=== PATIENT | female | born 1955 | race Caucasian/White ===

== ENCOUNTER 2023-08-05 13:50 | Inpatient (IN) | payer MEDICARE, MEDICAID, SELFPAY ==
[2023-08-05] VITALS (31 sets, daily range): BP systolic 106–200; BP diastolic 71–153; BMI 32.9; BMI 32.7
--- NOTE | 2023-08-05 09:02 | ED.GENMED ---
History of Present Illness
General
Chief Complaint: Heart Rate Problem
Source: patient
Time Seen by Provider: 08/05/23 08:42
Travel History
Have you had any contact with someone who has COVID-19?: No
Do you have any symptoms of coronavirus? Fever > 100 degrees, chills, cough, shortness of breath, sore throat, loss of taste or smell, muscle aches, or headache?: No
History of Present Illness
History of Present Illness:
67-year-old female presents to the emergency room complaining of shortness of breath, palpitations. Patient called 911 due to her shortness of breath. They noted her to have a significant tachycardia. Patient states that she been feeling short of
breath last night. She felt she was wheezing and used a breathing treatment. She does not have a history of A-fib or other cardiac rhythm abnormality. She does take atenolol for hypertension. She has not taken it for the past couple days.
Past History
Past History
ED Past Medical History: GERD, HTN, NIDDM, Seizures and Psychiatric (Bipolar disorder)
Social History
Tobacco: Former smoker
Alcohol: Former
Living: with family
Phy Exam
Physical Exam
Physical Exam:
General: Awake, Alert, Oriented X3. Patient seems jittery and anxious
Vitals: Tachycardic
Head: Atraumatic
Eyes: Pupils equal, EOMI
Throat: Airway intact, no exudates, dry mucosa
Neck: Trachea midline
Lungs: Clear and equal b/l
Heart: Tachycardic regular rate, no murmurs
Abd: Soft, Nontender, No pulsatile mass
Neuro: Nonfocal
Skin: Warm, dry, no rash
Extremities: pulses equal b/l, 1+ edema
Scores
[id number] Score for Afib Stroke Risk
Age in Years (65=0, 65-74=1, >/=75=2): <65
Sex (Female=+1): Female
Congestive Heart Failure History (Yes=+1): Yes
Hypertension History (Yes=+1): Yes
Stroke/TIA/Thromboembolism History (Yes=+2): No
Vascular Disease History (Yes=+1): No
Diabetes Mellitus (Yes=+1): No
Score: 3
Anticoagulation Recommendations: Recommend anticoagulation (as validated in nonvalvular fib)
Course
Orders/Labs/Results
Orders:
Orders
08/05/23 09:01
Electrocardiogram (*1) Stat
Reason for Study: Other
Other Reason for Exam: chest pain
Cardiac Monitoring- Treatment ONCE
EKG- Treatment ONCE
08/05/23 09:14
Basic Metabolic Panel Urgent
Complete Blood Count/With Diff Urgent
NT-proBNP Urgent
Troponin I Urgent
08/05/23 09:42
Diltiazem 125 mg/125 ml Nss [Cardizem] 125 mg in 125 ml IV NOW
Initial dose in mg/hr, then titrate:: 5
Titrate to keep:: Heart rate 80-100 bpm
Titrate by mg/hr:: 5 mg/hr
Frequency of titrations (minutes):: 15
Maximum dose in mg/hr:: 15
Diltiazem HCl [Cardizem] 15 mg IV NOW STA
08/05/23 10:15
CR Chest Portable - 1 View Urgent
Comment:
Reason For Exam: shorness of breath
Reason Study Needs to be Portable: Patient Unstable
08/05/23 10:21
Diltiazem HCl [Cardizem] 20 mg IV NOW STA
08/05/23 10:22
Acetaminophen [Tylenol] 1,000 mg PO NOW STA
08/05/23 10:45
Furosemide [Lasix] 40 mg IV NOW STA
08/05/23 10:51
Apixaban [Eliquis] 5 mg PO NOW STA
08/05/23 12:45
Lorazepam [Ativan] 1 mg IV NOW STA
08/05/23 12:46
EKG [Electrocardiogram (*1)] Urgent
Reason for Study: Chest Pain
EKG- Treatment ONCE
08/05/23 12:50
Nitroglycerin Sublingual [Nitrostat (Sublingual)] 0.4 mg SL NOW STA
Abnormal Lab Results
08/05/23
09:14
RBC 3.81 L 10^6/uL
(4.20-5.40)
MCH 32.8 H pg
(27.0-31.0)
RDW 14.6 H %
(11.5-14.5)
Absolute Lymphs (auto) 0.6 L 10^3/uL
(1.2-3.4)
Neutrophils % 82.8 H %
(42.2-75.2)
Lymphocytes % 8.5 L %
(20.5-51.1)
Chloride 108 H mmol/L
(98-107)
Creatinine 0.4 L mg/dL
(0.6-1.0)
Glucose 153 H mg/dl
(70-99)
08/05/23 09:14
08/05/23 09:14
Vital Signs
Initial and Last Documented VS:
Initial Vital Signs
Temp Pulse Resp BP Pulse Ox
97.8 F 147 22 141/96 95
08/05/23 08:48 08/05/23 08:48 08/05/23 08:48 08/05/23 08:48 08/05/23 08:48
Last Documented Vital Signs
Temp Pulse Resp BP Pulse Ox
97.8 F 133 24 164/116 94
08/05/23 08:48 08/05/23 12:30 08/05/23 12:30 08/05/23 12:30 08/05/23 12:30
MDM/Problems Addressed
Differential Diagnosis Includes:
SVT, atrial fibrillation, anemia, heart failure
MDM/Problems Addressed:
Patient presents with a rapid heart rate. Her EKG confirms that she is in atrial fibrillation with rapid ventricular response. She stated she felt she was wheezing but I hear no wheezing on exam. Rather it appears that she has developed heart
failure. She has crackles in the bases and her chest x-ray is consistent with pulmonary edema. Rate controlled with IV Cardizem. She received 2 boluses of the drip is at 15 if she continues to be fairly tachycardic. Eliquis given to start
anticoagulation given a [id number] score of 3. Patient will require hospitalization to adequately control blood pressure and for consideration of cardioversion.
Chronic conditions affecting care: HTN and COPD
*Radiology
Radiology exam reviewed: preliminary read by ED provider (Personally viewed the patient's chest x-ray and see mild pulmonary edema)
*Pulse Oximetry
Patient hypoxic: no
*EKG
Interpreted by ED Provider?: Yes
Interpretation: abnormal
Heart Rate: 144
Rate: tachycardiac
Rhythm: a-fib
[place]: normal axis
Interval: normal interval
QRS Pattern: normal QRS
Ischemia: non-specific ST changes
*Preservative Filler Machine Operator Interpretation
Rate: tachycardiac
Interpretation: abnormal
Rhythm: a-fib
*Critical Care Note
Total Time (30-74mins, 75-104mins- exclusive of procedures): 35 min
comment:
Critical care statement: A total of 35 minutes of critical care time was provided for this patient. This includes management of unstable vital signs, evaluation of the patient at bedside, reviewing the patient's pertinent medical records, discussion
with consultants, review of old EKGs and review of pertinent medical records. This time with separate from time utilized to perform the aforementioned documented procedures
ED Attending Note
-
Portions of this chart may have been created with voice recognition software.� Occasional wrong word or��sound alike� substitutions may have occurred due to the inherent limitations of voice recognition software.
Discharge Plan
Departure
Patient Disposition: Admit
Date of Disposition: 08/05/23
Time of Disposition: 10:46
Admit to: Telemetry
Presentation/result/management discussed w/ accepting MD/DO: Hospitalist
Condition: Fair
Discharge Problem:
Atrial fibrillation with rapid ventricular response, CHF (congestive heart failure)
Prescriptions:
No Action
atenolol 100 mg Tablet
100 mg PO DAILY Qty: 0
Patient Comments:
unknown dose
citalopram 40 mg Tablet
40 mg PO HS Qty: 0
omeprazole 40 MG capsule,delayed release(DR/EC)
40 mg PO DAILY
aspirin 81 MG tablet,delayed release (DR/EC)
81 mg PO DAILY
B-complex with vitamin C [Vitamin B Complex-C] Tablet
1 tab PO DAILY Qty: 0
Women's 50 Plus Daily Formula 1 EACH tablet
1 ea PO DAILY
magnesium oxide 400 mg magnesium Tablet
400 mg PO BID Qty: 0
Patient Comments:
Pt states she takes 2 400 mg pills (noted 09/14/14).
Glucosamine Chondroitin 550-30-1 mg Capsule
1 cap PO DAILY Qty: 0
albuterol sulfate 1 PUFF HFA aerosol inhaler
2 puff inhalation R Q4HPRN PRN (Reason: shortness of breath) Qty: 1 0RF
ibuprofen 800 mg tablet
800 mg PO TID PRN (Reason: mild pain)
ondansetron HCl 4 mg tablet
4 mg PO DAILY PRN (Reason: nausea/vomiting)
lorazepam 1 mg tablet
1 mg PO HS PRN (Reason: sleep/anxiety)
Patient Comments:
08/05/2023: last filled 04/27/23, 30 tabs [facility] [address] [id number]
budesonide-formoterol [Symbicort] 160-4.5 mcg/actuation Hfa Aerosol Inhaler
2 puff INHALATION R BID
Referrals:
Christopher Max MD [Family Provider] -
Interventions
Interventions:
*Risk Screen - Suicide Last Done: 08/05/23 08:48
*General Assessment Last Done: 08/05/23 08:48
*Neglect/Abuse Screening Last Done: 08/05/23 08:48
ED- Fall Risk Assessment Last Done: 08/05/23 09:01
*ED COVID-19 Vaccine History Last Done: 08/05/23 08:48
ED- Cardiac Assessment Last Done: 08/05/23 09:01
ED- Pulmonary Assessment Last Done: 08/05/23 09:01
Discharge Date and Time
Print Language: HEBREW
[2023-08-05 09:27] LABS: % Basophils 0.8 % (0-2); % Eosinophils 0.3 % (0-6); % Immature Granulocytes 0.4 % (0-0.5); % Lymphocytes 8.5 % (20.5-51.1); % Monocytes 7.2 % (1.7-9.3); % Neutrophils 82.8 % (42.2-75.2); Absolute Basophils 0.1 10^3/uL (0-0.2); Absolute Lymphocytes 0.6 10^3/uL (1.2-3.4); Absolute Monocytes 0.5 10^3/uL (0.1-0.6); Absolute Neutrophils 6.3 10^3/uL (1.4-6.5); Hematocrit 37.7 % (37.0-47.0); Hemoglobin 12.5 g/dL (12.0-16.0); Mean Corp Hgb Conc. 33.2 g/dL (33.0-37.0); Mean Corpuscular Hgb 32.8 pg (27.0-31.0); Mean Platelet Volume 10.2 fL (7.4-10.4); Nucleated Red Blood Cells % 0 %; Platelet Count 251 10^3/uL (130-400); Red Blood Cell Count 3.81 10^6/uL (4.20-5.40); Red Cell Dist. Width 14.6 % (11.5-14.5); White Blood Cell Count 7.6 10^3/uL (4.8-10.8)
[2023-08-05 09:41] LABS: Blood Urea Nitrogen 12 mg/dl (7-17); Calcium 9.1 mg/dl (8.4-10.2); Carbon Dioxide 23 mmol/L (22-30); Chloride 108 mmol/L (98-107); Estimated Creatinine Clearance 104 ml/min; Glucose 153 mg/dl (70-99); Potassium 4.1 mmol/L (3.5-5.1); Sodium 142 mmol/L (135-145); eGFR > 60.00
[2023-08-05 09:52] LABS: NT-proBNP 1740 pg/ml; Troponin I 0.013 ng/ml
[2023-08-05] MEDS: CARDIZEM 15 MG IV (09:58)
[2023-08-05] MEDS: CARDIZEM 125 IV ×2 (10:01→17:42)
[2023-08-05] MEDS: CARDIZEM 20 MG IV (10:43)
[2023-08-05] MEDS: TYLENOL 1000 MG PO (10:43)
[2023-08-05] MEDS: LASIX 40 MG IV (11:00)
[2023-08-05] MEDS: ELIQUIS 5 MG PO (11:01)
[2023-08-05] MEDS: ATIVAN 1 MG IV (12:49)
--- NOTE | 2023-08-05 13:18 | HPS.HSE ---
Family Physician
-
Family Physician: Christopher Max
Chief Complaint
-
SOB and palpitations
History of Present Illness
patient with a longstanding history of alcoholism and daily alcohol use, went cold turkey on Thursday. She drinks like 3 glasses of wine every day. A year ago she went through alcohol rehab. She is back to drinking.
When she stopped drinking she started become nauseous and she threw up. She was feeling shaky. She continued to stay away from alcohol.
Last night she started to become short of breath and started to have palpitations and so came to the hospital. No chest pains.
In the ER she was noted to be in rapid atrial fibrillation which is new to her and also evidence of heart failure which is new to her. Denies prior history of cardiac disease. History of hypertension but did not take her medication yesterday or
today.
Still feels tremulous.
No nausea today.
Denies history of diabetes mellitus type 2.
Medical History
Past Medical History
Past Medical History: Reports HTN, Seizures ( from alcohol withdrawal) and Psychiatric ( bipolar disorder)
Past Surgical History: Reports Other ( Breast implant in the 30s, tubal ligation)
Social History
Tobacco: Former Smoker
Alcohol: Daily
Living: Alone
Family History
Family History: Not pertinent
Allergies / Home Medications
Allergies reflects when Allergies were last updated in [employer].
Home Medications with original date entered in [employer]
Allergy/Medication List:
Allergies
Allergy/AdvReac Type Severity Reaction Status Date / Time
codeine Allergy causes Verified 08/05/23 09:01
nausea
oxycodone [From Percocet] Allergy Nausea / Verified 08/05/23 09:01
Vomiting
Home Medications
atenolol 100 mg tablet 100 mg PO DAILY ##0 10/17/12
B-complex with vitamin C 1 tab PO DAILY ##0 09/14/14
albuterol sulfate 90 mcg/actuation aerosol inhaler 2 puff inhalation R Q4HPRN PRN shortness of breath #1 puff 09/14/14
aspirin 81 mg tablet,delayed release 81 mg PO DAILY 09/14/14
citalopram 40 mg tablet 40 mg PO HS ##0 09/14/14
glucosamine sulf dipot chlr,msm,chond 550 mg-C 30 mg-adriana 1 mg capsule (Glucosamine Chondroitin) 1 cap PO DAILY ##0 09/14/14
magnesium oxide 400 mg PO BID ##0 09/14/14
menbowuo-pvj-ogsoq ac 400 mcg-calcium carb 500 mg-vit K1 20 mcg tablet (Women's 50 Plus Daily Formula) 1 ea PO DAILY 09/14/14
omeprazole 40 mg capsule,delayed release 40 mg PO DAILY 09/14/14
budesonide-formoterol HFA 160 mcg-4.5 mcg/actuation aerosol inhaler (Symbicort) 2 puff inhalation R BID 08/05/23
ibuprofen 800 mg tablet 800 mg PO TID PRN mild pain 08/05/23
lorazepam 1 mg tablet 1 mg PO HS PRN sleep/anxiety 08/05/23
ondansetron HCl 4 mg tablet 4 mg PO DAILY PRN nausea/vomiting 08/05/23
Review of Systems
-
A 12 point ROS was completed and negative except as noted: Yes
Physical Exam
Vital Signs
Vital Signs
Temp Pulse Resp BP Pulse Ox
97.8 F 133 24 164/116 94
08/05/23 08:48 08/05/23 12:30 08/05/23 12:30 08/05/23 12:30 08/05/23 12:30
Physical Exam
General: No Apparent Distress
HEENT: Moist mucous membranes
Respiratory: Crackles (bl basilar)
Cardiac: S1/S2, Irregular Rhythm and Tachycardia
GI: Soft, Non Tender and No Hepatosplenomegaly
Neuro: AO x 3, No Motor Deficits and Tremors
Psych: Anxious; No Confused
Laboratory Results
-
08/05/23 09:14
08/05/23 09:14
Laboratory Results
Troponin I 0.013 ng/ml 08/05/23 09:14
Data Reviewed
-
Diagnostic Radiology: Report Reviewed by me (cxr)
Lab Data: Labs Reviewed by me
Impression/Plan
-
New onset of atrial fibrillation with RVR and associated heart failure; HD stable-admit to IVU. Continue with IV Cardizem drip initiated in the ER. Patient had Lasix in the ER which would continue daily. Check an echocardiogram. Consult
cardiology. Admitting troponins were negative.
Acute alcohol withdrawal syndrome-patient went cold turkey on Thursday. She still has tremors and feeling anxious. There is tachycardia which may be A-fib related but she is also hypertensive which may be alcohol withdrawal related or having not
taking her antihypertensive for the last 2 days. Cannot rule out initiation of A-fib with the onset of alcohol withdrawal. Start on alcohol withdrawal program. She does not want to go into alcohol rehab but she wants to consider outpatient AA
meetings again.
Hypertension-hold atenolol as she is going to be on IV Cardizem
Bipolar disorder-continue with her antidepressants for now.
On inhaler thearpy ? hx of asthma ;denies hx of COPD - no exacerbation -cw inhaler therapy
DW sister at bedside
Full code
[2023-08-05] MEDS: NITROSTAT (SUBLINGUAL) 0.400000000000000022 MG SL (13:35)
--- NOTE | 2023-08-05 14:23 | CON.CAR ---
Addendum entered and electronically signed by Laurie Mclalister MD 08/05/23 16:50:
I saw and examined the patient.
The Flash Drier Operator's note was reviewed and I agree with the note.
Comment: Briefly, patient is a 67 year old morbidly obese female with HTN, Bipolar disorder, former smoker (quit >30yrs ago), alcohol abuse who presented this admission with SOB and palpitations found to have new onset Afib with RVR and ADHF in
setting of alcohol abuse and concern for possible withdrawal.
Vitals and Labs reviewed. ECG with Afib with RVR, non-specific ST-T changes. Exam notable for morbidly obese female, A+O x3, somnolent, irregularly irreg, tachycardic, Normal S1 and S2, +bibasilar rales, abd obese, soft, NT, ND +BS, warm ext.
Reccs:
1. On cardiazem drip 15mcg. Start Toprol XL 25mg bid and wean off cardizem.
2. Echocardiogram to assess biventricular and valvular function.
3. Check TSH
4. Complete alcohol abstinence. Outpt sleep study.
5. IV lasix with daily upright weights, ins and outs and close monitoring or lytes and renal function.
6. [id number] of 4 warranting computer terminal operator full AC but will have to watch for painless hematuria as reported by history while on heparin here and check UA to make sure urology workup not warranted.
7. Depending on echo and trend trops, eventual OAC is no contraindication and possible DCCV to achieve SR.
8. Optimize CV risk factors.
Laurie Mcallister MD, [facility], [facility]
Original Note:
Consultation
Consultation Request
Date/Time Consultation Requested: 08/05/23
Date/Time Consultation Performed: 08/05/23
Requesting Provider: Dr. Zuniga
Performing Provider: Dr. Mcallister
Reason for Consultation: Afib
Medical History
-
History of Present Illness:
Patient came to [facility] today with SOB and palpitations and cardiology is now consulted for new Afib. Patient drinks 3 glasses daily by her report. She says that she stopped all alcohol this past Thursday and no longer wishes to drink. She was shaky
and vomited. Then last night she started with resting SOB and JONES plus palpitations as new symptoms. Shakes have been getting worse too. She came to [facility] today at the urging of her sister and was found to be in newly diagnosed Afib with RVR of
unclear duration. She was started on a Cardizem gtt and HRs now 115-125. No longer feels palpitations. She felt shakes earlier, but this was better after Ativan. No chest pain. SOB is better. No previous h/o Afib. She has never been on OAC for any
reason. She says that she notices blood in her urine every so often, but no dysuria and it always resolves without specific intervention.
PMH:
Alcohol use disorder
HTN
h/o Bipolar disorder
Past Medical History
Past Medical History: Other (in HPI)
Past Surgical History: Other (breast implants, tubal ligation, cataracts)
Social History
Tobacco: Former Smoker
Alcohol: Chronic Alcoholic
Drug: None
Personal: Single
Living: Alone
Family History
Family History: Diabetes and Other (FH of DM)
Allergies / Home Medications
Allergy/AdvReac Type Severity Reaction Status Date / Time
codeine Allergy causes Verified 08/05/23 09:01
nausea
oxycodone [From Percocet] Allergy Nausea / Verified 08/05/23 09:01
Vomiting
�Medication �Instructions �Recorded �Confirmed �Type
atenolol 100 mg tablet 100 mg PO DAILY ##0 10/17/12 08/05/23 History
B-complex with vitamin C 1 tab PO DAILY ##0 09/14/14 08/05/23 History
albuterol sulfate 90 mcg/actuation 2 puff inhalation R Q4HPRN PRN 09/14/14 08/05/23 Rx
aerosol inhaler shortness of breath #1 puff
aspirin 81 mg tablet,delayed 81 mg PO DAILY 09/14/14 08/05/23 History
release
citalopram 40 mg tablet 40 mg PO HS ##0 09/14/14 08/05/23 History
glucosamine sulf dipot 1 cap PO DAILY ##0 09/14/14 08/05/23 History
chlr,msm,chond 550 mg-C 30 mg-adriana
1 mg capsule (Glucosamine
Chondroitin)
magnesium oxide 400 mg PO BID ##0 09/14/14 08/05/23 History
kxpzfnsw-hnz-eufwj ac 400 1 ea PO DAILY 09/14/14 08/05/23 History
mcg-calcium carb 500 mg-vit K1 20
mcg tablet (Women's 50 Plus Daily
Formula)
omeprazole 40 mg capsule,delayed 40 mg PO DAILY 09/14/14 08/05/23 History
release
budesonide-formoterol HFA 160 2 puff inhalation R BID 08/05/23 08/05/23 History
mcg-4.5 mcg/actuation aerosol
inhaler (Symbicort)
ibuprofen 800 mg tablet 800 mg PO TID PRN mild pain 08/05/23 08/05/23 History
lorazepam 1 mg tablet 1 mg PO HS PRN sleep/anxiety 08/05/23 08/05/23 History
ondansetron HCl 4 mg tablet 4 mg PO DAILY PRN nausea/vomiting 08/05/23 08/05/23 History
Review of Systems
-
History Source: Patient
All other systems: Negative unless noted
Physical Exam
Vital Signs
Temp Pulse Resp BP Pulse Ox
97.8 F 131 19 174/128 94
08/05/23 08:48 08/05/23 13:45 08/05/23 13:45 08/05/23 13:45 08/05/23 13:45
GEN: NAD. AAOx3
HEENT: EOMI, MMM
LUNGS: CTA B/L, no wheezes or rales
CV: Irreg irreg and fast, S1/S2, no murmur
ABD: soft, BS+, NT, ND
EXT: No clubbing, cyanosis, lesions or edema B/L
NEURO: Gross non-focal
SKIN: Warm, dry and pink. No rash
Lab Results
08/05/23 09:14
08/05/23 09:14
Troponin I 0.013 ng/ml 08/05/23 09:14
Rkn-B-Zbvowgilxry Pept 1740 pg/ml 08/05/23 09:14
Impression / Plan
-
PCP: Dr. Max
Cardiology: None prior to admission
Impression:
Admitted with alcohol withdrawal
Alcohol use disorder
Newly diagnosed Afib with RVR
HTN
h/o Bipolar disorder
Echo 08/05/23: Study pending
Plan:
-Patient came to [facility] today with SOB and palpitations and cardiology is now consulted for new Afib. Patient drinks 3 glasses daily by her report. She says that she stopped all alcohol this past Thursday and no longer wishes to drink. She was shaky
and vomited. Then last night she started with resting SOB and JONES plus palpitations as new symptoms. Shakes have been getting worse too. She came to [facility] today at the urging of her sister and was found to be in newly diagnosed Afib with RVR of
unclear duration. She was started on a Cardizem gtt and HRs now 115-125. No longer feels palpitations. She felt shakes earlier, but this was better after Ativan. No chest pain. SOB is better. No previous h/o Afib. She has never been on OAC for any
reason. She says that she notices blood in her urine every so often, but no dysuria and it always resolves without specific intervention.
-Afib is a new diagnosis and duration unknown. HR control improved with Cardizem gtt at 15 mg/hr. Patient going to IVU for titration. Will add Toprol XL 12.5 mg BID starting tonight as well as BP tolerates. Will stop outpatient dose of atenolol.
-Talked with patient about OAC and she reports intermittent painless hematuria, no previous work-up or diagnosis. Will start Heparin gtt and pending echo can start OAC.
-Addition of Toprol XL should help BP as well. Might even need another med in addition.
-ECG reviewed by me shows Afib and nonspecific ST changes.
[2023-08-05] MEDS: SYMBICORT 160/4.5 MCG INHALER 2 PUFF INH (17:50)
[2023-08-05] MEDS: ProAIR HFA INHALER 2 PUFF INH (17:51)
[2023-08-05 18:25] LABS: PT 20.2 Sec (11.4-14.6)
[2023-08-05 18:26] LABS: APTT 33.5 Sec (23.4-35.0)
[2023-08-05 18:37] LABS: GGTP 318 U/L (12-43); Magnesium 0.5 mg/dl (1.6-2.3)
[2023-08-05 18:40] LABS: Troponin I 0.019 ng/ml
[2023-08-05 18:46] LABS: B-Hydroxybutyrate 0.23 mmol/L (0.02-0.27)
[2023-08-05] MEDS: HEPARIN 25000 UNITS/250 ML IV (19:28)
[2023-08-05] MEDS: MAG-TAB SR 84 MG PO (19:46)
[2023-08-05] MEDS: TOPROL XL 12.5 MG PO (19:46)
[2023-08-05] MEDS: THIAMINE INJECTION 200 MG IV (19:46)
[2023-08-05] MEDS: MAGNESIUM SULFATE 100 IV (20:05)
[2023-08-05] MEDS: ATIVAN 1 MG PO (20:09)
--- NOTE | 2023-08-05 20:52 | PTCARENOTE ---
Assumed care. Patient AO x3, tearful at times, mild tremors, mildly anxious. MSAS 5. Ativan 1 mg PO given. Magnesium 0.5, IV magnesium infusing, PO MG given per MAR. A-FIB HR 100-110. Cardizem infusing at 15mg/hr, heparin gtt at 1000 units/hr.
Incontinent of large amount of urine, purwick replaced. Call gomes in reach
--- NOTE | 2023-08-05 21:08 | PTCARENOTE ---
Patient sleeping, lights dimmed
[2023-08-05] MEDS: CELEXA 40 MG PO (22:33)
[2023-08-05 23:53] LABS: Urine Albumin 3+ (Neg - Trace); Urine Bilirubin 1+ (Negative); Urine Color Yellow; Urine Glucose Negative (Negative); Urine Ketone Negative (Negative); Urine Leukocyte 1+ (Negative); Urine Nitrite Positive (Negative); Urine Occult Blood Trace (Negative); Urine Specific Gravity 1.025 (<1.030); Urine Urobilinogen Negative (Neg - 1+)
[2023-08-05 23:57] LABS: Urine Character Cloudy (Clear)
[2023-08-06] VITALS (8 sets, daily range): BP systolic 106–142; BP diastolic 68–104; BMI 32.6
[2023-08-06 00:14] LABS: Amphetamines Negative (Negative); Barbiturates Negative (Negative); Benzodiazepines Negative (Negative); Buprenorphine Negative (Negative); Cocaine Negative (Negative); Marijuana Negative (Negative); Methadone Negative (Negative); Methamphetamines Negative (Negative); Opiates Negative (Negative); Phencyclidine Negative (Negative); Tricyclic Antidepressants Negative (Negative)
[2023-08-06 00:32] LABS: Urine Amorphous Seen; Urine Squamous Cell >30 /LPF (Few)
[2023-08-06 00:33] LABS: Urine Bacteria Many (Negative)
[2023-08-06] MEDS: CARDIZEM 125 IV ×2 (02:25→18:28)
[2023-08-06 03:38] LABS: APTT 50.6 Sec (23.4-35.0)
[2023-08-06 03:44] LABS: Blood Urea Nitrogen 14 mg/dl (7-17); Calcium 8.4 mg/dl (8.4-10.2); Carbon Dioxide 27 mmol/L (22-30); Chloride 104 mmol/L (98-107); Estimated Creatinine Clearance 104 ml/min; Glucose 97 mg/dl (70-99); HDL Cholesterol 81 mg/dl; LDL Cholesterol, Calculated 36 mg/dl; Magnesium 1.5 mg/dl (1.6-2.3); Potassium 3.1 mmol/L (3.5-5.1); Sodium 139 mmol/L (135-145); Total Cholesterol 129 mg/dl (50-199); Triglyceride 61 mg/dl (10-149); Very Low Density Lipoprotein 12 mg/dl (0-30); eGFR > 60.00
[2023-08-06 03:48] LABS: Troponin I 0.013 ng/ml
[2023-08-06 04:14] LABS: TSH Reflex To Free T4 2.39 uIU/ml (0.47-4.68)
--- NOTE | 2023-08-06 05:08 | PTCARENOTE ---
Mg 1.5, K 3.1 orders received
[2023-08-06] MEDS: MAGNESIUM SULFATE 50 IV (05:10)
[2023-08-06] MEDS: KCL 40 MEQ PO (05:16)
--- NOTE | 2023-08-06 07:48 | W.PN.CARDCBS ---
Addendum entered and electronically signed by Laurie Mcallister MD 08/06/23 11:25:
I saw and examined the patient.
The Manager Oncology's note was reviewed and I agree with the note.
Comment: Overall patient is stable. She tells me that her shortness of breath has improved. She needed 1 dose of Ativan overnight. She has tolerated heparin drip overnight well. She continues to be on a Cardizem drip with A-fib with RVR and
heart rates in the 110s. Blood pressures are stable. She denies any chest discomfort.
Vital signs and lab work reviewed. Magnesium was severely low and thus was repleted. Troponins have been negative.
On exam patient is a obese female in no acute distress, awake and alert oriented x 3, bibasilar Rales, irregularly irregular heart rhythm, normal S1 and S2, no murmurs, rubs or gallops, abdomen is soft, nontender, nondistended with active bowel
sounds, warm extremity
Recommendations:
1. Follow-up on echocardiogram today to assess biventricular function and rule out any significant valvular abnormalities.
2. Continue with IV diuresis for today and reassess volume status tomorrow in the hopes that we can switch her to p.o. diuretics for acute decompensated heart failure.
3. Increase Toprol-XL to every 8 hours with hopes of weaning off Cardizem drip.
4. Tentative plan for MIMI cardioversion tomorrow morning and eventual oral anticoagulation with Eliquis. Will have case management look into the cost.
Laurie Mcallister MD, [facility], [facility]
Original Note:
Today's Communication / Plan
-
Diuresing, hospitalists handling electrolyte supplementation
Check echo
Switch to Eliquis if echo is unremarkable and no additional testing needed
Wean Cardizem gtt by increasing Toprol XL
Impression / Plan
-
PCP: Dr. Max
Cardiology: None prior to admission
Impression:
Admitted with alcohol withdrawal
Alcohol use disorder
Newly diagnosed Afib with RVR
HTN
h/o Bipolar disorder
Hypokalemia
Hypomagnesemia
Acute HF unknown EF
Echo 08/05/23: Study pending
Plan:
-Relatively uneventful overnight, occasional dosing of Ativan for withdrawal.
-Patient with HF on CXR and pro-BNP 1740. Lasix 40 mg IV daily started 08/05/23 and weight is down about 1 lb.
-Hospitalist attending is ordering potassium and magnesium supplementation
-Echo pending
-Remains in Afib, HR response improved on Cardizem gtt. Increased Toprol XL to 25 mg BID on 08/06/23 AM. Will wean down Cardizem gtt.
-Cont Heparin gtt for now until echo resulted to be sure no additional testing needed.
-Patient reports intermittent painless hematuria. UA from 08/05/23 shows trace occult blood and many bacteria. Will order urine culture. Perhaps hematuria is from an infection. Hgb is stable. If echo is unremarkable then will transition from Heparin
gtt to Eliquis 5 mg BID (age 67, Cre 0.4)
-Will ask CM to check on cost of Eliquis
-Patient is symptomatic with Afib. Pending ETOH withdrawal can consider MIMI/CV. Patient says that she is not planning to go to any kind of inpatient rehab, she says she is going home and going to start going to .
-TSH normal at 2.39
-Patient will need an outpatient sleep study
-Troponin serially normal
-LDL 36
HPI: Patient came to [facility] today with SOB and palpitations and cardiology is now consulted for new Afib. Patient drinks 3 glasses daily by her report. She says that she stopped all alcohol this past Thursday and no longer wishes to drink. She was
shaky and vomited. Then last night she started with resting SOB and JONES plus palpitations as new symptoms. Shakes have been getting worse too. She came to [facility] today at the urging of her sister and was found to be in newly diagnosed Afib with RVR
of unclear duration. She was started on a Cardizem gtt and HRs now 115-125. No longer feels palpitations. She felt shakes earlier, but this was better after Ativan. No chest pain. SOB is better. No previous h/o Afib. She has never been on OAC for
any reason. She says that she notices blood in her urine every so often, but no dysuria and it always resolves without specific intervention.
Progress Note - Cardiographer
Subjective
Date of Service: August 06, 2023
She feels better today, still feels heart racing with activity
Objective
Labs:
08/05/23 09:14
08/06/23 02:38
Labs
Hgb 12.5 g/dL (12.0-16.0) 08/05/23 09:14
Hct 37.7 % (37.0-47.0) 08/05/23 09:14
Plt Count 251 10^3/uL (130-400) 08/05/23 09:14
PT 20.2 Sec (11.4-14.6) H 08/05/23 17:54
INR 1.70 08/05/23 17:54
APTT 50.6 Sec (23.4-35.0) H 08/06/23 02:39
Sodium 139 mmol/L (135-145) 08/06/23 02:38
Potassium 3.1 mmol/L (3.5-5.1) L 08/06/23 02:38
BUN 14 mg/dl (7-17) 08/06/23 02:38
Creatinine 0.4 mg/dL (0.6-1.0) L 08/06/23 02:38
Glucose 97 mg/dl (70-99) 08/06/23 02:38
Troponins
08/05/23 08/05/23 08/06/23
09:14 17:54 02:38
Troponin I 0.013 0.019 0.013
Vital Signs and I&O:
Vital Signs
Temp Pulse Resp BP Pulse Ox
98.8 F 93 20 128/89 90
08/06/23 07:23 08/06/23 07:30 08/06/23 07:23 08/06/23 07:25 08/06/23 07:23
Vital Signs
Temp Pulse Resp BP Pulse Ox
98.8 F 93 20 128/89 90
08/06/23 07:23 08/06/23 07:30 08/06/23 07:23 08/06/23 07:25 08/06/23 07:23
Intake & Output
08/04/23 08/05/23 08/06/23 08/07/23
06:59 06:59 06:59 06:59
Intake Total 492 / 492
Output Total 100 / 100
Balance 392 / 392
Physical Exam
Physical Exam
GEN: NAD. AAOx3
HEENT: EOMI, MMM
LUNGS: No audible wheeze
CV: Irreg irreg
ABD: ND
EXT: No edema B/L
NEURO: Gross non-focal
SKIN: No rash
[2023-08-06] MEDS: SYMBICORT 160/4.5 MCG INHALER 2 PUFF INH ×2 (08:35→18:30)
[2023-08-06] MEDS: LASIX 40 MG IV ×2 (08:52→15:55)
[2023-08-06 09:34] LABS: Glycohemoglobin (HgbA1c) 5.4 % (4.0-5.6)
[2023-08-06] MEDS: PROTONIX 40 MG PO (09:39)
[2023-08-06] MEDS: THIAMINE INJECTION 200 MG IV ×2 (09:39→20:12)
[2023-08-06] MEDS: ASPIR LOW (ENTERIC COATED) 81 MG PO (09:39)
[2023-08-06] MEDS: TOPROL XL 25 MG PO ×2 (09:40→20:10)
[2023-08-06] MEDS: MAG-TAB SR 84 MG PO ×2 (09:40→20:10)
[2023-08-06] MEDS: FOLVITE 1 MG PO (09:40)
[2023-08-06] MEDS: TYLENOL 650 MG PO (09:47)
--- NOTE | 2023-08-06 10:01 | W.PN.HOSP.TC ---
Today's Communication/Plan
-
await Bcares
await ECHO
wean cardizem drip
Assessment / Plan
Assessment / Plan
pt is a 67 year old female
New onset of atrial fibrillation with RVR and associated heart failure; HD stable--Wean IV Cardizem drip off--cont lasix--await echo--apprec cardiology--likely due to chronic alcoholism
Acute alcohol withdrawal syndrome--patient went cold turkey on Thursday--tremors improved per nursing and pt-- alcohol withdrawal program. She does not want to go into alcohol rehab but she wants to consider outpatient AA meetings again--asked CM
to send BCares
Essential Hypertension--holding atenolol as she is going to be on IV Cardizem and likely changed to metoprolol
Bipolar disorder--continue with her antidepressants for now.
hx of asthma--denies hx of COPD - no exacerbation - inhaler therapy
Full code
Anticipated Discharge: > 48 hours
Subjective/Interval History
-
Date of Service: August 06, 2023
pt says she is 'just about done with her detox'--she has self detoxed before....she wheezes when she sits up
Objective Data
-
Labs:
Laboratory Results
08/06/23 08/06/23 08/06/23
02:38 02:39 10:10
APTT 50.6 H Pending
Sodium 139
Potassium 3.1 L
Chloride 104
Carbon Dioxide 27
BUN 14
Creatinine 0.4 L
Glucose 97
Calcium 8.4
Vital Signs:
max temp for 24 hours
08/05/23
19:59
Temp 99.2 F
Vital Signs
Temp Pulse Resp BP Pulse Ox
98.8 F 120 20 140/84 97
08/06/23 07:23 08/06/23 09:40 08/06/23 08:39 08/06/23 09:40 08/06/23 08:39
I&O
08/05/23 08/06/23 08/07/23
06:59 06:59 06:59
Intake Total 492 / 492
Output Total 100 / 100
Balance 392 / 392
Review of Systems
-
All other systems: Reviewed and negative
Respiratory: Reports Wheezing
Physical Exam
-
General: Well Developed, Well Nourished and No Apparent Distress
HEENT: Normocephalic and Atraumatic
Respiratory: Crackles (with rhonchi right base)
Cardiac: Irregular Rhythm
GI: Soft, Nontender, Nondistended and Normal Bowel Sounds
Musculoskeletal: No Clubbing, No Cyanosis and No Edema
Neuro: Awake, Alert and Tremors (mild)
Psych: Calm
[2023-08-06 10:53] LABS: APTT 74.3 Sec (23.4-35.0)
--- NOTE | 2023-08-06 11:29 | CM ---
spoke to pt in room, she is prev indep, lives alone in a 2 story home with 1 step to enter. she has a cane, walker, stair glide and a personal alert button she wears. she is asking for help with stopping drinking. she told me she was in rehab before
and then started drinking again, she would like to look into AA. information given on outpatient resources. KORI # given to pt to call for help and guidance, she said she will and was glad to get the help. dc plan is home when medically stable.
--- NOTE | 2023-08-06 16:27 | CM ---
priced yun at [facility]- her copay is $11.20/month it is in stock
[2023-08-06] MEDS: ATIVAN 1 MG PO (16:45)
[2023-08-06] MEDS: HEPARIN 25000 UNITS/250 ML IV (17:25)
[2023-08-06 17:29] LABS: APTT 78.3 Sec (23.4-35.0)
[2023-08-06] MEDS: ProAIR HFA INHALER 2 PUFF INH (18:30)
--- NOTE | 2023-08-06 19:01 | PTCARENOTE ---
Pt with decreased urine output after 4 pm lasix. Pt bladder scanned for 14 ml of urine. Will monitor.
[2023-08-06] MEDS: ELIQUIS 5 MG PO (20:10)
[2023-08-06] MEDS: FLUSH (NSS) 2 FLUSH IV (20:13)
[2023-08-06] MEDS: CELEXA 40 MG PO (22:51)
[2023-08-07] MEDS: CARDIZEM 125 IV ×2 (01:20→09:58)
[2023-08-07 03:14] VITALS: BP 127/86
[2023-08-07] MEDS: TYLENOL 650 MG PO (03:36)
[2023-08-07 03:41] LABS: Hematocrit 36.2 % (37.0-47.0); Hemoglobin 11.8 g/dL (12.0-16.0); Mean Corp Hgb Conc. 32.6 g/dL (33.0-37.0); Mean Corpuscular Hgb 32.9 pg (27.0-31.0); Mean Corpuscular Volume 100.8 fL (81.0-99.0); Mean Platelet Volume 10.6 fL (7.4-10.4); Platelet Count 225 10^3/uL (130-400); Red Blood Cell Count 3.59 10^6/uL (4.20-5.40); Red Cell Dist. Width 14.7 % (11.5-14.5); White Blood Cell Count 7.9 10^3/uL (4.8-10.8)
[2023-08-07 04:18] LABS: Blood Urea Nitrogen 19 mg/dl (7-17); Calcium 8.5 mg/dl (8.4-10.2); Carbon Dioxide 25 mmol/L (22-30); Chloride 102 mmol/L (98-107); Estimated Creatinine Clearance 89 ml/min; Glucose 118 mg/dl (70-99); Magnesium 1.5 mg/dl (1.6-2.3); Potassium 3.9 mmol/L (3.5-5.1); Sodium 136 mmol/L (135-145); eGFR > 60.00
[2023-08-07 06:00] VITALS: BMI 33.1
[2023-08-07 06:58] VITALS: BP 129/80
--- NOTE | 2023-08-07 07:36 | W.PN.CARDCBS ---
Addendum entered and electronically signed by Valente Walker MD 08/07/23 14:42:
I saw and examined the patient.
The Sap Portal Architect's note was reviewed and I agree with the note.
Comment: Briefly, 67-year-old woman presenting with A-fib RVR and decompensated heart failure with preserved ejection fraction
Volume status is reasonable today following several days of IV lasix - can likely transition to oral Lasix in the next 24 to 48 hours
Underwent MIMI guided direct-current cardioversion earlier today to restore sinus rhythm
Stop cardizem gtt
Cont low dose metoprolol
New to Eliquis, okay to stop aspirin from my standpoint
Original Note:
Today's Communication / Plan
-
MIMI/CV this AM
Continue Eliquis 5mg BID
Continue IV lasix for now, likely close to transitioning to PO.
Impression / Plan
-
PCP: Dr. Max
Cardiology: None prior to admission, initially seen by Dr. Mcallister
Impression:
Admitted with alcohol withdrawal
Alcohol use disorder
Newly diagnosed Afib with RVR
HTN
h/o Bipolar disorder
Hypokalemia
Hypomagnesemia
Acute HFpEF
Echo 08/06/23: EF 55-60%, hyperechoic echodensity noted on the chordae/papillary muscle measuring 71 x78 mm, likely calcified chordae/papillary muscle, moderate MR, mild to moderate TR, estimated PAP 55mmHg
Plan:
-Presented with SOB and palpitations and found to be in afib. Afib is a new diagnosis.
-Remains on cardizem gtt for rate control as well as Toprol 25mg BID.
-HRs improved, in the 60s this AM, however remains in afib.
-Initially on IV heparin for AC, transitioned to Eliquis 5mg BID 08/06.
-Also with evidence of acute heart failure on admission. Diuresing with IV lasix 40mg daily
-Weight not updated 08/06, however weight is down at least 1lb.
-Creat stable. Likely can transition to PO lasix in AM.
-Echo 08/05 with preserved EF and moderate MR.
-TSH normal at 2.39
-Patient will need an outpatient sleep study
-Will arrange follow up.
HPI: Patient came to [facility] today with SOB and palpitations and cardiology is now consulted for new Afib. Patient drinks 3 glasses daily by her report. She says that she stopped all alcohol this past Thursday and no longer wishes to drink. She was
shaky and vomited. Then last night she started with resting SOB and JONES plus palpitations as new symptoms. Shakes have been getting worse too. She came to [facility] today at the urging of her sister and was found to be in newly diagnosed Afib with RVR
of unclear duration. She was started on a Cardizem gtt and HRs now 115-125. No longer feels palpitations. She felt shakes earlier, but this was better after Ativan. No chest pain. SOB is better. No previous h/o Afib. She has never been on OAC for
any reason. She says that she notices blood in her urine every so often, but no dysuria and it always resolves without specific intervention.
Progress Note - Lead Manufacturing Engineering Tech
Subjective
Date of Service: August 07, 2023
Feeling well. Breathing better this AM after Symbicort.
Objective
Labs:
08/07/23 03:21
08/07/23 03:21
Labs
Hgb 11.8 g/dL (12.0-16.0) L 08/07/23 03:21
Hct 36.2 % (37.0-47.0) L 08/07/23 03:21
Plt Count 225 10^3/uL (130-400) 08/07/23 03:21
PT 20.2 Sec (11.4-14.6) H 08/05/23 17:54
INR 1.70 08/05/23 17:54
APTT 78.3 Sec (23.4-35.0) H 08/06/23 16:58
Sodium 136 mmol/L (135-145) 08/07/23 03:21
Potassium 3.9 mmol/L (3.5-5.1) D 08/07/23 03:21
BUN 19 mg/dl (7-17) H 08/07/23 03:21
Creatinine 0.7 mg/dL (0.6-1.0) 08/07/23 03:21
Glucose 118 mg/dl (70-99) H 08/07/23 03:21
Troponins
08/05/23 08/05/23 08/06/23
09:14 17:54 02:38
Troponin I 0.013 0.019 0.013
Vital Signs and I&O:
Vital Signs
Temp Pulse Resp BP Pulse Ox
98.7 F 68 20 127/86 90
08/07/23 06:58 08/07/23 03:30 08/07/23 06:58 08/07/23 03:14 08/07/23 06:58
Vital Signs
Temp Pulse Resp BP Pulse Ox
98.7 F 68 20 127/86 90
08/07/23 06:58 08/07/23 03:30 08/07/23 06:58 08/07/23 03:14 08/07/23 06:58
Intake & Output
08/05/23 08/06/23 08/07/23 08/08/23
06:59 06:59 06:59 06:59
Intake Total 492 / 492 1722 / 1722
Output Total 100 / 100 850 / 850
Balance 392 / 392 872 / 872
Physical Exam
Physical Exam
GEN: No distress, awake, alert, oriented x3
HEENT: supple, anicteric, mmm
LUNGS: CTA b/l, no wheezes/rales
CV: irregularly irregular, S1/S2, 2/6 syst murmur
EXT: No clubbing, cyanosis, or edema
NEURO: Gross non-focal
SKIN: Warm, dry, no rash
[2023-08-07] MEDS: SYMBICORT 160/4.5 MCG INHALER 2 PUFF INH ×2 (07:45→20:15)
[2023-08-07] MEDS: ASPIR LOW (ENTERIC COATED) 81 MG PO (08:19)
[2023-08-07] MEDS: TOPROL XL 25 MG PO (08:19)
[2023-08-07] MEDS: ELIQUIS 5 MG PO ×2 (08:20→21:39)
[2023-08-07 08:46] VITALS: BMI 32.6
--- NOTE | 2023-08-07 08:49 | W.PN.HOSP.TC ---
Today's Communication/Plan
-
MIMI with cardioversion today
likely d/c tomorrow
Assessment / Plan
Assessment / Plan
pt is a 67 year old female
New onset of atrial fibrillation with RVR and associated heart failure; HD stable--Wean IV Cardizem drip off--cont lasix--getting MIMI with cardioversion today, TTE with EF 60% with moderate MR and mild to mod TR--apprec cardiology--likely due to
chronic alcoholism
Acute alcohol withdrawal syndrome--patient went cold turkey on Thursday--tremors improved-- alcohol withdrawal program. She does not want to go into alcohol rehab but she wants to consider outpatient AA meetings again--asked CM to send [facility]
Essential Hypertension--holding atenolol as she is going to be on IV Cardizem and likely changed to metoprolol
Bipolar disorder--continue with her antidepressants for now.
hx of asthma--denies hx of COPD - no exacerbation - inhaler therapy
Full code
Anticipated Discharge: Within 24 hours
Subjective/Interval History
-
Date of Service: August 07, 2023
pt waiting for MIMI cardioversion
Objective Data
-
Labs:
Laboratory Results
08/07/23
03:21
WBC 7.9
Hgb 11.8 L
Hct 36.2 L
Plt Count 225
Sodium 136
Potassium 3.9 D
Chloride 102
Carbon Dioxide 25
BUN 19 H
Creatinine 0.7
Glucose 118 H
Calcium 8.5
Vital Signs:
max temp for 24 hours
08/06/23
22:49
Temp 98.9 F
Vital Signs
Temp Pulse Resp BP Pulse Ox
98.7 F 70 16 129/80 92
08/07/23 06:58 08/07/23 08:30 08/07/23 07:52 08/07/23 08:19 08/07/23 07:52
I&O
08/06/23 08/07/23 08/08/23
06:59 06:59 06:59
Intake Total 492 / 492 1722 / 1722
Output Total 100 / 100 850 / 850
Balance 392 / 392 872 / 872
Review of Systems
-
All other systems: Reviewed and negative
Physical Exam
-
General: Well Developed, Well Nourished and No Apparent Distress
HEENT: Normocephalic and Atraumatic
Respiratory: Clear to Auscultation; Negative Wheezes or Rhonchi
Cardiac: Irregular Rhythm; Negative Murmur
GI: Soft, Nontender, Nondistended and Normal Bowel Sounds
Musculoskeletal: No Clubbing, No Cyanosis and No Edema
Neuro: Awake and Alert
Psych: Calm
[2023-08-07] MEDS: MAGNESIUM SULFATE 100 IV (09:55)
--- NOTE | 2023-08-07 10:00 | PTCARENOTE ---
Pt AOx3, no complaints of pain or discomfort. VSS, Afib on tele monitor. Up to bedside commode x1 assist. MSAS monitored. Call gomes within reach.
[2023-08-07] MEDS: PROTONIX PO (10:49)
[2023-08-07] MEDS: MAG-TAB SR PO (10:49)
[2023-08-07 11:15] VITALS: BP 111/71
--- NOTE | 2023-08-07 12:01 | PTCARENOTE ---
Pt left for MIMI/CV. Has been NPO except sip with morning medications. Report given to TRAVIS Ayala.
[2023-08-07] MEDS: DUONEB 3 ML INH (12:35)
--- NOTE | 2023-08-07 12:45 | CM ---
dc plan remains home when medically stable.
[2023-08-07] MEDS: THIAMINE INJECTION IV (13:20)
[2023-08-07 14:33] VITALS: BP 138/89
[2023-08-07] MEDS: FOLVITE 1 MG PO (14:33)
[2023-08-07] MEDS: LASIX 40 MG IV (14:33)
--- NOTE | 2023-08-07 14:35 | ITS.CL.CARDI ---
Order Picker - Cardioversion
Cardioversion
Procedure Report:
Procedure: MIMI-guided electrical cardioversion
Pre-operative diagnosis: Persistent atrial fibrillation
Post-operative diagnosis: Persistent atrial fibrillation status post DC cardioversion to sinus rhythm
Anesthesia: MAC
Attending Physician: Valente Walker MD
Procedure Description: The patient was brought to the electrophysiology laboratory in the fasting state. Informed consent was obtained from the patient prior to the start of the procedure. Adherence to anticoagulation was confirmed. Electrodes were
placed on the patient and connected to an external defibrillator. Monitoring of blood pressure, ECG tracings, and pulse oximetry was initiated. The pads were applied to the patient in the anterior and posterior positions. The patient was sedated by
the anesthesiologist. A MIMI (reported separately) was performed prior to the cardioversion. No left atrial or left atrial appendage thrombus was seen. After the MIMI probe was removed, a 200 joule biphasic synchronized shock was delivered to the
patient under MAC anesthesia. Sinus rhythm was successfully restored. The patient recovered uneventfully from MAC anesthesia. There were no immediate post-procedure complications. The patient left the lab in good condition. The attending physician
was present throughout the entire procedure.
Impression: Successful MIMI-guided direct current cardioversion with restorationism of sinus rhythm after one 200 joule biphasic synchronized shock.
--- NOTE | 2023-08-07 14:36 | PTCARENOTE ---
Pt returned from CV. VSS. On 2L O2, spO2 95%. Educated on using call gomes for assistance. Call gomes within reach.
[2023-08-07 19:26] VITALS: BP 123/80
[2023-08-07] MEDS: THIAMINE INJECTION 200 MG IV (21:39)
[2023-08-07] MEDS: MAG-TAB SR 84 MG PO (21:39)
[2023-08-07] MEDS: CELEXA 40 MG PO (21:39)
[2023-08-07] MEDS: FLUSH (NSS) 2 FLUSH IV (21:40)
[2023-08-07 22:36] VITALS: BP 147/79
[2023-08-07] MEDS: ATIVAN 1 MG PO (22:44)
--- NOTE | 2023-08-08 04:03 | PTCARENOTE ---
Pt AAOx3 w/some intermittent forgetfulness during this shift; Pt did have a period of time overnight where her MSAS score was a 5 & pt felt 'more anxious & shaky'; PRN PO Ativan administered as ordered w/good relief. Pt w/no c/o CP or SOB. Pt's VS
stable w/HR in the 80's-90's. Pt 92-95% on 2L O2 via NC & pt reports 'feeling better with the oxygen on'. Pt's lung sounds are decreased in her bases w/some bilat expiratory wheezing anteriorly but overall clear. Discussed ongoing plan of care &
addtl CHF teaching w/pt. Answered pt's questions & emotional support provided. Pt w/call gomes within reach & plan of care ongoing.
[2023-08-08 04:33] VITALS: BP 121/72
[2023-08-08 05:22] LABS: Blood Urea Nitrogen 21 mg/dl (7-17); Calcium 8.8 mg/dl (8.4-10.2); Carbon Dioxide 28 mmol/L (22-30); Chloride 101 mmol/L (98-107); Estimated Creatinine Clearance 104 ml/min; Glucose 96 mg/dl (70-99); Magnesium 1.8 mg/dl (1.6-2.3); Potassium 3.3 mmol/L (3.5-5.1); Sodium 137 mmol/L (135-145); eGFR > 60.00
[2023-08-08] MEDS: TYLENOL 650 MG PO (05:51)
[2023-08-08 05:55] VITALS: BMI 33.1
[2023-08-08 07:25] VITALS: BP 143/88
[2023-08-08] MEDS: SYMBICORT 160/4.5 MCG INHALER 2 PUFF INH (07:42)
--- NOTE | 2023-08-08 08:00 | PTCARENOTE ---
Resumed care of patient from previous RN. walking rounds completed. pt oob in chair at time of assessment. Pt AAOx3, no complaints of pain. VSS, Afib on monitor. self up and oob to BSC. iv lasix given . attends on due to stress inc weaned o2 to 1 L.
pulse ox 94%. occasional exp wheeze noted but patient states breathing is much better. trace lower extremity edema noted with weak pulses and PVD discoloration. Hopeful d/c today after IV lasix dose given. will continue to monitor.
--- NOTE | 2023-08-08 09:35 | W.PN.CARDCBS ---
Addendum entered and electronically signed by Vivek Byrne MD 08/08/23 10:58:
Patient interviewed and examined. Note below reviewed.
She is very anxious to go home, complains of polyuria
PMH/PSH/SH/FH: Reviewed
Allergies are to codeine
Outpatient meds reviewed. She states she was not taking furosemide as an outpatient.
ROS negative except as above
121/72, pulse 90, respirate 18, afebrile Somewhat tachypneic, moving air relatively well, regular rate and rhythm, JVD okay not much edema, head neck exam unremarkable, abdomen benign extremities intact
Potassium 3.3, BUN and creatinine 21 and 0.5
Impression/plan: Overall she is improved. She appears somewhat dyspneic, but suspect this is multifactorial. Since she is anxious to go home, although my initial instinct were to keep working other day, it is reasonable for her to be discharged.
Would add potassium to discharge regimen. She has transition from atenolol to metoprolol, atenolol was 100 mg and Toprol is currently 25 mg daily. Will increase metoprolol ER to 50 mg a day. Given that she probably has obstructive lung
disease/asthma will need to observe closely.
.
Encouraged to remain abstinent from alcohol.
.
We will arrange for outpatient cardiac follow-up. Okay for discharge.
Original Note:
Today's Communication / Plan
-
Extra Lasix 40 mg IV now
Remains in SR
Impression / Plan
-
PCP: Dr. Max
Cardiology: None prior to admission, initially seen by Dr. Mcallister
Impression:
Admitted with alcohol withdrawal
Alcohol use disorder
Newly diagnosed Afib with RVR
s/p successful MIMI/CV 08/07/23
HTN
h/o Bipolar disorder
Hypokalemia
Hypomagnesemia
Acute HFpEF
Echo 08/06/23: EF 55-60%, hyperechoic echodensity noted on the chordae/papillary muscle measuring 71 x78 mm, likely calcified chordae/papillary muscle, moderate MR, mild to moderate TR, estimated PAP 55mmHg
Plan:
-Patient remains in SR following successful MIMI/CV 08/07/23
-Cont Eliquis 5 mg BID, appreciate help of CM in determining cost which is $11/month
-Outpatient dose of atenolol has been stopped and new to Toprol XL 25 mg daily
-Weight is not down much despite Lasix 40 mg IV daily diuresis. Will try an extra dose of Lasix 40 mg IV now for a total of 80 mg IV on 08/08/23 AM.
-Supplement potassium, already ordered by hospitalist attending
-Patient will need an outpatient sleep study
-Patient reported intermittent painless hematuria. UA from 08/05/23 showed trace occult blood and many bacteria. Hgb is stable.
-Cardiology follow up arranged. Patient says that she is not planning to go to any kind of inpatient rehab, she says she is going home and going to start going to .
HPI: Patient came to [facility] today with SOB and palpitations and cardiology is now consulted for new Afib. Patient drinks 3 glasses daily by her report. She says that she stopped all alcohol this past Thursday and no longer wishes to drink. She was
shaky and vomited. Then last night she started with resting SOB and JONES plus palpitations as new symptoms. Shakes have been getting worse too. She came to [facility] today at the urging of her sister and was found to be in newly diagnosed Afib with RVR
of unclear duration. She was started on a Cardizem gtt and HRs now 115-125. No longer feels palpitations. She felt shakes earlier, but this was better after Ativan. No chest pain. SOB is better. No previous h/o Afib. She has never been on OAC for
any reason. She says that she notices blood in her urine every so often, but no dysuria and it always resolves without specific intervention.
Progress Note - House Manager
Subjective
Date of Service: August 08, 2023
No palpitations
Objective
Labs:
08/07/23 03:21
08/08/23 04:40
Labs
Hgb 11.8 g/dL (12.0-16.0) L 08/07/23 03:21
Hct 36.2 % (37.0-47.0) L 08/07/23 03:21
Plt Count 225 10^3/uL (130-400) 08/07/23 03:21
PT 20.2 Sec (11.4-14.6) H 08/05/23 17:54
INR 1.70 08/05/23 17:54
APTT 78.3 Sec (23.4-35.0) H 08/06/23 16:58
Sodium 137 mmol/L (135-145) 08/08/23 04:40
Potassium 3.3 mmol/L (3.5-5.1) L 08/08/23 04:40
BUN 21 mg/dl (7-17) H 08/08/23 04:40
Creatinine 0.5 mg/dL (0.6-1.0) L 08/08/23 04:40
Glucose 96 mg/dl (70-99) 08/08/23 04:40
Troponins
08/05/23 08/05/23 08/06/23
09:14 17:54 02:38
Troponin I 0.013 0.019 0.013
Vital Signs and I&O:
Vital Signs
Temp Pulse Resp BP Pulse Ox
98.5 F 90 18 121/72 97
08/08/23 07:24 08/08/23 07:48 08/08/23 07:48 08/08/23 04:33 08/08/23 07:48
Vital Signs
Temp Pulse Resp BP Pulse Ox
98.5 F 90 18 121/72 97
08/08/23 07:24 08/08/23 07:48 08/08/23 07:48 08/08/23 04:33 08/08/23 07:48
Intake & Output
08/06/23 08/07/23 08/08/23 08/09/23
06:59 06:59 06:59 06:59
Intake Total 492 / 492 1722 / 1722 480 / 480
Output Total 100 / 100 850 / 850 250 / 250
Balance 392 / 392 872 / 872 230 / 230
Physical Exam
Physical Exam
GEN: NAD. AAOx3
HEENT: EOMI, MMM
LUNGS: No audible wheeze
CV: Reg
ABD: ND
EXT: No edema B/L
NEURO: Gross non-focal
SKIN: No rash
--- NOTE | 2023-08-08 09:50 | W.PN.HOSP.TC ---
Today's Communication/Plan
-
d/c
Assessment / Plan
Assessment / Plan
pt is a 67 year old female
New onset of atrial fibrillation with RVR and associated heart failure; HD stable--off IV Cardizem drip off--cont lasix--s/p MIMI with cardioversion, TTE with EF 60% with moderate MR and mild to mod TR--apprec cardiology--likely due to chronic
alcoholism
Acute alcohol withdrawal syndrome--patient went cold turkey on Thursday--tremors improved-- alcohol withdrawal program. She does not want to go into alcohol rehab but she wants to consider outpatient AA meetings again--asked CM to send [facility]
Essential Hypertension--holding atenolol as she is going to be on IV Cardizem and likely changed to metoprolol
Bipolar disorder--continue with her antidepressants for now.
hx of asthma--denies hx of COPD - no exacerbation - inhaler therapy
Full code
Anticipated Discharge: Today
Subjective/Interval History
-
Date of Service: August 08, 2023
pt ready for d/c
Objective Data
-
Labs:
Laboratory Results
08/08/23
04:40
Sodium 137
Potassium 3.3 L
Chloride 101
Carbon Dioxide 28
BUN 21 H
Creatinine 0.5 L
Glucose 96
Calcium 8.8
Vital Signs:
max temp for 24 hours
08/07/23
19:59
Temp 99.0 F
Vital Signs
Temp Pulse Resp BP Pulse Ox
98.5 F 90 18 121/72 97
08/08/23 07:24 08/08/23 07:48 08/08/23 07:48 08/08/23 04:33 08/08/23 07:48
I&O
08/07/23 08/08/23 08/09/23
06:59 06:59 06:59
Intake Total 1722 / 1722 480 / 480
Output Total 850 / 850 250 / 250
Balance 872 / 872 230 / 230
Review of Systems
-
All other systems: Reviewed and negative
Physical Exam
-
General: Well Developed, Well Nourished and No Apparent Distress
HEENT: Normocephalic and Atraumatic
Respiratory: Clear to Auscultation; Negative Wheezes or Rhonchi
Cardiac: Regular Rhythm and S1/S2; Negative Murmur
GI: Soft, Nontender, Nondistended and Normal Bowel Sounds
Musculoskeletal: No Clubbing, No Cyanosis and No Edema
Neuro: Awake
[2023-08-08] MEDS: KCL 40 MEQ PO (09:51)
[2023-08-08] MEDS: FOLVITE 1 MG PO (09:51)
[2023-08-08] MEDS: MAG-TAB SR 84 MG PO (09:51)
[2023-08-08] MEDS: ELIQUIS 5 MG PO (09:51)
[2023-08-08] MEDS: PROTONIX 40 MG PO (09:51)
[2023-08-08] MEDS: TOPROL XL 25 MG PO (09:52)
[2023-08-08] MEDS: LASIX 40 MG IV (09:53)
[2023-08-08] MEDS: THIAMINE INJECTION 200 MG IV (09:53)
[2023-08-08] MEDS: LASIX 80 MG IV (09:54)
[2023-08-08 12:31] VITALS: BP 134/93
--- NOTE | 2023-08-08 13:27 | W.DCSUMMARY ---
Discharge Summary
Discharge Data
Date of Admission: 08/05/23
Date of Discharge: 08/08/23
-
Pending Results: No
Hospital Course
Primary care physician : Christopher Max
Principal Discharge diagnosis : New onset atrial fibrillation with associated diastolic congestive heart failure, acute alcohol withdrawal syndrome
Chronic Discharge diagnosis : Alcohol abuse, essential hypertension, bipolar disorder, asthma
Hospital Course : Patient was a 67-year-old female with a longstanding history of alcoholism and daily alcohol use who went 'cold turkey' on the Thursday prior to admission. She drinks 3 glasses of wine daily but a year ago went through alcohol
rehab and is now back to drinking. After she stopped drinking, she became nauseous and threw up, was feeling shaky and continue to abstain from alcohol. The night prior to admission she became short of breath and had palpitations. She was noted
to be in rapid atrial fibrillation in the emergency department which was new to her and also evidence of heart failure which was new. Patient was admitted.
Problem #1: New onset atrial fibrillation with associated diastolic congestive heart failure exacerbation. Patient was admitted and seen in consultation by cardiology. She was started on a Cardizem drip which was eventually weaned off. She then
underwent transesophageal echocardiogram with cardioversion and she is now in sinus rhythm. Echocardiogram, transthoracic, showed ejection fraction of 60% with moderate MR and mild to moderate TR. All of this is likely due to her chronic
alcoholism. She will be discharged on diuretics and has been instructed to abstain from alcohol.
Problem #2: Acute alcohol withdrawal syndrome. Patient quit cold turkey on the Thursday prior to admission. By the time she arrived at the hospital she was mostly finished with withdrawal. She had mild tremors which have subsequently improved.
She was started on the MSAS protocol and Meagan pineda was asked to see the patient. She does not wish to go to any inpatient alcohol rehab but states that she will go to the outpatient AA meetings. She understands the need to quit.
Problem #3: All other medical issues. These include essential hypertension, bipolar disorder, asthma. These medical issues were stable during her hospitalization. Medications were continued as able.
Patient is stable for discharge home at this time. If there are any questions regarding this dictation or her hospital stay, please not hesitate to call. Our office number is [phone].
Patient is stable for discharge home at this time. If there are any questions regarding this dictation or her hospital stay, please not hesitate to call. Our office number is [phone].
Procedure findings :
MIMI CONCLUSIONS:
Normal left ventricular size, wall thickness and systolic function. No regional
wall motion abnormalities are seen. The ejection fraction is estimated at 55-
60%.
Normal right ventricular size and function.
Dilated left atrium.
No left atrial appendage thrombus.
Mild to moderate mitral regurgitation.
Mild to moderate tricuspid regurgitation.
Moderate plaque seen in the descending aorta.
CARDIOVERSION IMPRESSION: Successful MIMI-guided direct current cardioversion with lutheran of sinus rhythm after one 200 joule biphasic synchronized shock.
Discharge Plan
-
Patient Disposition: Home (Routine Discharge)
Discharge Diagnosis/Procedures: New onset atrial fibrillation with rapid ventricular response and new onset diastolic congestive heart failure exacerbation due to chronic alcoholism, acute alcohol withdrawal syndrome, essential hypertension, bipolar
disorder, history of asthma
Condition: Good
Diet: 2 Gram Sodium
Additional Diets: Must avoid ALL alcohol
Activity: As tolerated
Driving Restrictions: As prior to admission
Bathing Restrictions: None
Specialty Instructions: Weigh Daily- Call MD for wt gain/loss 3 lbs overnight/5 lbs in 1 week
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
Referrals:
[facility] [Outside] (someome will call you Tues to confirm )
Laurie Mcallister MD [Active] - in two to four weeks (The cardiology office will call you to arrange follow up.)
Christopher Max MD [Family Provider] - in less than 1 week
Additional Discharge Medication Instructions: -Stop taking atenolol
-Start taking Toprol XL (metoprolol succinate) 50 mg once a day
Prescriptions:
New
Eliquis 5 mg tablet
5 mg PO BID Qty: 60 11RF
thiamine HCl (vitamin B1) 100 mg Tablet
100 mg PO BID Qty: 0 0RF
folic acid 1 mg Tablet
1 mg PO DAILY Qty: 0 0RF
furosemide 40 mg tablet
40 mg PO DAILY Qty: 30 0RF
potassium chloride 20 mEq tablet extended release
20 meq PO DAILY Qty: 30 11RF
metoprolol succinate [Toprol XL] 50 mg tablet extended release 24 hr
50 mg PO DAILY Qty: 30 11RF
Continued
citalopram 40 mg Tablet
40 mg PO HS Qty: 0
omeprazole 40 MG capsule,delayed release(DR/EC)
40 mg PO DAILY
B-complex with vitamin C Tablet
1 tab PO DAILY Qty: 0
Women's 50 Plus Daily Formula 1 EACH tablet
1 ea PO DAILY
magnesium oxide 400 mg magnesium Tablet
400 mg PO BID Qty: 0
Patient Comments:
Pt states she takes 2 400 mg pills (noted 09/14/14).
Glucosamine Chondroitin 550-30-1 mg Capsule
1 cap PO DAILY Qty: 0
albuterol sulfate 1 PUFF HFA aerosol inhaler
2 puff inhalation R Q4HPRN PRN (Reason: shortness of breath) Qty: 1 0RF
ondansetron HCl 4 mg tablet
4 mg PO DAILY PRN (Reason: nausea/vomiting)
budesonide-formoterol [Symbicort] 160-4.5 mcg/actuation Hfa Aerosol Inhaler
2 puff INHALATION R BID
Discontinued
atenolol 100 mg Tablet
100 mg PO DAILY Qty: 0
Patient Comments:
unknown dose
aspirin 81 MG tablet,delayed release (DR/EC)
81 mg PO DAILY
ibuprofen 800 mg tablet
800 mg PO TID PRN (Reason: mild pain)
lorazepam 1 mg tablet
1 mg PO HS PRN (Reason: sleep/anxiety)
Patient Comments:
08/05/2023: last filled 04/27/23, 30 tabs for 30 days from [facility]#[id number]
Discharge Orders:
Discharge Patient (As Directed); Ordered 08/08/23
Ordered By: Skye Pimentel
Care Plan Goals
Care Plan Goals:
Problem: Readiness for enhanced knowledge related to diagnosis and treatment plan
Goal: Understand your diagnosis and treatment plan needs, including medications if applicable.
Instructions: Know your diagnosis, underlying causes and treatment plan options, including medications if applicable. Consult with your health care team to learn about your diagnosis and treatment plan, including medications if applicable.
Discharge Date and Time
Print Language: ZAMBIAN
--- NOTE | 2023-08-08 15:33 | PTCARENOTE ---
all d/c instructions gone over with pt and sister at bedside. IV and tele pack removed. questions answered and patient left with belongings as well as paperwork and instructions. Taken via wheelchair out to car and left with sister to go home.
== END 2023-08-08 16:32 | disposition home or self-care (01) | DRG 291 ==
LOC: IVU 13:50
PROVIDERS: Internal Medicine Cardiovascular Disease; Nurse Practitioner Family; Physician Assistant Medical; ADMITTING PHYSICIAN Internal Medicine; ATTENDING PHYSICIAN Internal Medicine; EMERGENCY PHYSICIAN Emergency Medicine; FAMILY PHYSICIAN Internal Medicine; OTHER PHYSICIAN Internal Medicine Interventional Cardiology
PROC: B24BZZ4 Ultrasonography of Heart with Aorta, Transesophageal (ICD-10-PCS; 2023-08-07)
PROC: 5A2204Z Restoration of Cardiac Rhythm, Single (ICD-10-PCS; 2023-08-07)
DX: I11.0 Hypertensive heart disease with heart failure (principal); I50.33 Acute on chronic diastolic (congestive) heart failure; F10.239 Alcohol dependence with withdrawal, unspecified; I48.19 Other persistent atrial fibrillation; Z87.891 Personal history of nicotine dependence; F31.9 Bipolar disorder, unspecified; E66.01 Morbid (severe) obesity due to excess calories; E87.6 Hypokalemia; E83.42 Hypomagnesemia; J45.909 Unspecified asthma, uncomplicated; Z79.01 Long term (current) use of anticoagulants; Z68.33 Body mass index [BMI] 33.0-33.9, adult
CPT/HCPCS: 71045; 80048; 80061; 80306; 81003; 81015; 82010; 82977; 83036; 83735; 83880; 84100; 84443; 84484; 85025; 85027; 85610; 85730; 87070; 92960; 93005; 93306; 93312; 93320; 93325; 94640; 96365; 96366; 96375; 99291

== ENCOUNTER 2024-04-11 23:57 | Inpatient (IN) | payer MEDICARE, SELFPAY ==
[2024-04-11 17:28] VITALS: BP 162/75
--- NOTE | 2024-04-11 17:29 | ED.GENMED ---
ED Provider Triage
<Kwan Teixeira PA-C - Last Filed: 04/11/24 17:33>
-
Patient seen by provider in Triage?: Seen in Triage
Attestation: A medical screening examination has been initiated by a qualified medical provider. Based on the assessment performed at this time, it has been determined that an emergent medical condition may exist and the patient has been informed
that further medical evaluation and possible additional diagnostic testing may be needed.
HPI: 68-year-old female presenting to the ER for evaluation of reported confusion. Family reports that patient called around 7 AM this morning and left a voicemail that was with garbled and pressured speech. Family does not live locally and came
to the patient's home today and brought her to the ER. Patient seemingly still very anxious. Stuttering on words. No fevers or infectious symptoms. Unknown last known normal. Labs and CT of the head ordered
GENERAL: Alert , in no apparent distress
EYE: No visual abnormalities.
NECK: Trachea midline
ENT: No visible abnormalities.
LUNGS: No acute respiratory distress
NEUROLOGICAL: Alert and oriented
SKIN: Skin intact. No visible changes.
MUSCULOSKELETAL: Moving extremities normally
PSYCH: Normal and appropriate interaction.
This is a medical evaluation conducted in person to initiate diagnostic evaluation and provide initial therapeutics. Please see further documentation by the treating clinician.
History of Present Illness
<Kwan Teixeira PA-C - Last Filed: 04/11/24 17:33>
General
Chief Complaint: Blood Pressure Problem
Time Seen by Provider: 04/11/24 20:12
<Mayank Escudero PA-C - Last Filed: 04/11/24 23:57>
History of Present Illness
History of Present Illness:
68-year-old female presents to the emergency department with her sister for evaluation of confusion. Sister speaking with the patient by phone sister speaking with the patient by phone she felt the patient was completely confused and appeared to be
hallucinating. Sister drove down from her residence to see the patient and the patient was profoundly confused, hallucinating about animals and people in her home. Patient does have a prior history of alcohol abuse and sister reported numerous
empty large alcohol bottles in her apartment today
Past History
<Kwan Teixeira PA-C - Last Filed: 04/11/24 17:33>
Past History
ED Past Medical History: GERD, HTN, NIDDM, Seizures and Psychiatric (Bipolar disorder)
Social History
Tobacco: Former smoker
Alcohol: Former
Living: with family
Review of Systems
<Mayank Escudero PA-C - Last Filed: 04/11/24 23:57>
Review of Systems
Allergies reviewed?: Yes
All Other Systems: ROS reviewed and negative except as documented in HPI and ROS
Phy Exam
<Mayank Escudero PA-C - Last Filed: 04/11/24 23:57>
Physical Exam
Physical Exam:
GEN: Well appearing, NAD, WDWN
HEENT: Oral mucosa moist, no scleral icterus, no nasal congestion
Cardiac: Regular rate
Lung: No respiratory distress, no tachypnea
MSK: No gross deformity or injuries
Skin: Good color, no pallor or jaundice, no rashes
Neuro: AO x3; CN II-XII grossly intact. BUE strength 5/5 in all patrick, sensation intact and symmetric. BLE strength 5/5 in all patrick, sensation intact and symmetric. Severe tremors particular with movement. Horizontal nystagmus noted. Appears
to be responding to internal stimuli on occasion
Psych: Severely anxious, easily agitated
Course
<Kwan Teixeira PA-C - Last Filed: 04/11/24 17:33>
Orders/Labs/Results
Orders:
Orders
04/11/24 17:32
CT Head W/o Iv Contrast Urgent
Comment:
Reason For Exam: Confusion
04/11/24 17:33
Electrocardiogram (*1) Urgent
Reason for Study: TIA/Stroke
EKG- Treatment ONCE
Urinalysis Reflex To Culture Urgent
Date Specimen was Collected: 04/11/24
Time Specimen was Collected: 23:15
04/11/24 17:42
Alcohol Urgent
Basic Metabolic Panel Urgent
Complete Blood Count/With Diff Urgent
Folate Urgent
Comment: ADD ON
TSH Urgent
Comment: ADD ON
Vitamin B12 Urgent
Comment: ADD ON
04/11/24 20:38
Lactated Ringers [Lr] 1,000 ml IV BOLUS
Lorazepam [Ativan] 2 mg IV NOW STA
04/11/24 20:47
Add On- LAB Urgent
Tests Added?: folate, B12, alcohol level
04/11/24 22:28
Lorazepam [Ativan] 1 mg IV NOW STA
04/11/24 22:43
FOLic ACID [Folvite] 1 mg 0.9% Sodium Chloride 50 ml [Nss] 50 ml IV NOW
04/11/24 22:44
Add On- LAB Urgent
Tests Added?: TSH
04/11/24 23:07
Straight cath- Treatment ONCE
04/11/24 23:21
FOLic ACID [Folvite] 1 mg 0.9% Sodium Chloride 50 ml [Nss] 50 ml IV NOW
04/11/24 23:42
Add On- LAB Stat
Tests Added?: UDS
04/12/24 00:00
Thiamine Injection 500 mg 0.9% Sodium Chloride 250 ml [Nss] 250 ml IV Q8
Thiamine Injection 500 mg 0.9% Sodium Chloride 250 ml [Nss] 250 ml IV Q8
Abnormal Lab Results
04/11/24
17:42
RBC 3.92 L 10^6/uL
(4.20-5.40)
MCH 33.9 H pg
(27.0-31.0)
MPV 11.5 H fL
(7.4-10.4)
Absolute Neuts (auto) 7.1 H 10^3/uL
(1.4-6.5)
Absolute Monos (auto) 1.2 H 10^3/uL
(0.1-0.6)
Lymphocytes % 14.0 L %
(20.5-51.1)
Monocytes % 12.0 H %
(1.7-9.3)
Carbon Dioxide 15 L mmol/L
(22-30)
BUN 32 H mg/dl
(7-17)
Creatinine 1.8 H mg/dL
(0.6-1.0)
Folate > 20.0 H ng/ml
(2.76-20)
04/11/24 17:42
04/11/24 17:42
Vital Signs
Initial and Last Documented VS:
Initial Vital Signs
Temp Pulse Resp BP Pulse Ox
99.8 F 76 20 162/75 100
04/11/24 17:28 04/11/24 17:28 04/11/24 17:28 04/11/24 17:28 04/11/24 17:28
Last Documented Vital Signs
Temp Pulse Resp BP Pulse Ox
98.2 F 71 20 163/85 94
04/11/24 22:37 04/11/24 23:15 04/11/24 23:15 04/11/24 22:20 04/11/24 23:15
<Mayank Escudero PA-C - Last Filed: 04/11/24 23:57>
Orders/Labs/Results
Orders:
Orders
04/11/24 17:32
CT Head W/o Iv Contrast Urgent
Comment:
Reason For Exam: Confusion
04/11/24 17:33
Electrocardiogram (*1) Urgent
Reason for Study: TIA/Stroke
EKG- Treatment ONCE
Urinalysis Reflex To Culture Urgent
Date Specimen was Collected: 04/11/24
Time Specimen was Collected: 23:15
04/11/24 17:42
Alcohol Urgent
Basic Metabolic Panel Urgent
Complete Blood Count/With Diff Urgent
Folate Urgent
Comment: ADD ON
TSH Urgent
Comment: ADD ON
Vitamin B12 Urgent
Comment: ADD ON
04/11/24 20:38
Lactated Ringers [Lr] 1,000 ml IV BOLUS
Lorazepam [Ativan] 2 mg IV NOW STA
04/11/24 20:47
Add On- LAB Urgent
Tests Added?: folate, B12, alcohol level
04/11/24 22:28
Lorazepam [Ativan] 1 mg IV NOW STA
04/11/24 22:43
FOLic ACID [Folvite] 1 mg 0.9% Sodium Chloride 50 ml [Nss] 50 ml IV NOW
04/11/24 22:44
Add On- LAB Urgent
Tests Added?: TSH
04/11/24 23:07
Straight cath- Treatment ONCE
04/11/24 23:21
FOLic ACID [Folvite] 1 mg 0.9% Sodium Chloride 50 ml [Nss] 50 ml IV NOW
04/11/24 23:42
Add On- LAB Stat
Tests Added?: UDS
04/12/24 00:00
Thiamine Injection 500 mg 0.9% Sodium Chloride 250 ml [Nss] 250 ml IV Q8
Thiamine Injection 500 mg 0.9% Sodium Chloride 250 ml [Nss] 250 ml IV Q8
Abnormal Lab Results
04/11/24
17:42
RBC 3.92 L 10^6/uL
(4.20-5.40)
MCH 33.9 H pg
(27.0-31.0)
MPV 11.5 H fL
(7.4-10.4)
Absolute Neuts (auto) 7.1 H 10^3/uL
(1.4-6.5)
Absolute Monos (auto) 1.2 H 10^3/uL
(0.1-0.6)
Lymphocytes % 14.0 L %
(20.5-51.1)
Monocytes % 12.0 H %
(1.7-9.3)
Carbon Dioxide 15 L mmol/L
(22-30)
BUN 32 H mg/dl
(7-17)
Creatinine 1.8 H mg/dL
(0.6-1.0)
Folate > 20.0 H ng/ml
(2.76-20)
04/11/24 17:42
04/11/24 17:42
Vital Signs
Initial and Last Documented VS:
Initial Vital Signs
Temp Pulse Resp BP Pulse Ox
99.8 F 76 20 162/75 100
04/11/24 17:28 04/11/24 17:28 04/11/24 17:28 04/11/24 17:28 04/11/24 17:28
Last Documented Vital Signs
Temp Pulse Resp BP Pulse Ox
98.2 F 71 20 163/85 94
04/11/24 22:37 04/11/24 23:15 04/11/24 23:15 04/11/24 22:20 04/11/24 23:15
<Mayank Escudero PA-C - Last Filed: 04/11/24 23:57>
MDM/Problems Addressed
MDM/Problems Addressed:
Unclear if this represents a Warnicke encephalopathy due to chronic alcohol use versus an acute alcohol withdrawal. She is very tremulous and her sister reported that she was hypertensive at home however at this time her vital signs are improved.
She is very tremulous and has a nystagmus suggestive more of a Warnicke's presentation. Due to anxiety and agitation she was given IV benzodiazepines with good result. CT of the head is unremarkable. IV folic acid and thiamine given. Will admit
to the hospitalist service for further management
<Mayank Escudero PA-C - Last Filed: 04/11/24 23:57>
*Critical Care Note
Total Time (30-74mins, 75-104mins- exclusive of procedures): Not Applicable
ED Attending Note
<Kwan Teixeira PA-C - Last Filed: 04/11/24 17:33>
-
Portions of this chart may have been created with voice recognition software.� Occasional wrong word or��sound alike� substitutions may have occurred due to the inherent limitations of voice recognition software.
Discharge Plan
Departure
Patient Disposition: Admit
Date of Disposition: 04/11/24
Time of Disposition: 23:30
Admit to: IMU
Presentation/result/management discussed w/ accepting MD/DO: Hospitalist
Discharge Problem:
Alcohol withdrawal delirium, acute, hyperactive, Acute encephalopathy
Prescriptions:
No Action
citalopram 40 mg Tablet
40 mg PO HS Qty: 0
omeprazole 40 MG capsule,delayed release(DR/EC)
40 mg PO DAILY
B-complex with vitamin C Tablet
1 tab PO DAILY Qty: 0
Women's 50 Plus Daily Formula 1 EACH tablet
1 ea PO DAILY
magnesium oxide 400 mg magnesium Tablet
400 mg PO BID Qty: 0
Patient Comments:
Pt states she takes 2 400 mg pills (noted 09/14/14).
Glucosamine Chondroitin 550-30-1 mg Capsule
1 cap PO DAILY Qty: 0
albuterol sulfate 1 PUFF HFA aerosol inhaler
2 puff inhalation R Q4HPRN PRN (Reason: shortness of breath) Qty: 1 0RF
ondansetron HCl 4 mg tablet
4 mg PO DAILY PRN (Reason: nausea/vomiting)
budesonide-formoterol [Symbicort] 160-4.5 mcg/actuation Hfa Aerosol Inhaler
2 puff INHALATION R BID
Eliquis 5 mg tablet
5 mg PO BID Qty: 60 11RF
thiamine HCl (vitamin B1) 100 mg Tablet
100 mg PO BID Qty: 0 0RF
folic acid 1 mg Tablet
1 mg PO DAILY Qty: 0 0RF
furosemide 40 mg tablet
40 mg PO DAILY Qty: 30 0RF
potassium chloride 20 mEq tablet extended release
20 meq PO DAILY Qty: 30 11RF
metoprolol succinate [Toprol XL] 50 mg tablet extended release 24 hr
50 mg PO DAILY Qty: 30 11RF
Referrals:
Christopher Max MD [Family Provider] -
Interventions
Interventions:
*Risk Screen - Suicide Last Done: 04/11/24 17:28
*General Assessment Last Done: 04/11/24 20:47
*Neglect/Abuse Screening Last Done: 04/11/24 20:49
*ED COVID-19 Vaccine History Last Done: 04/11/24 20:47
ED- Cardiac Assessment Last Done: 04/11/24 21:02
ED- Neurological Assessment Last Done: 04/11/24 21:02
ED- Pulmonary Assessment Last Done: 04/11/24 21:02
Discharge Date and Time
Print Language: FAROESE
[2024-04-11 17:58] LABS: % Basophils 0.3 % (0-2); % Eosinophils 0.1 % (0-6); % Immature Granulocytes 0.3 % (0-0.5); % Neutrophils 73.3 % (42.2-75.2); Absolute Lymphocytes 1.4 10^3/uL (1.2-3.4); Absolute Monocytes 1.2 10^3/uL (0.1-0.6); Absolute Neutrophils 7.1 10^3/uL (1.4-6.5); Hematocrit 38.6 % (37.0-47.0); Hemoglobin 13.3 g/dL (12.0-16.0); Mean Corp Hgb Conc. 34.5 g/dL (33.0-37.0); Mean Corpuscular Hgb 33.9 pg (27.0-31.0); Mean Corpuscular Volume 98.5 fL (81.0-99.0); Mean Platelet Volume 11.5 fL (7.4-10.4); Nucleated Red Blood Cells % 0 %; Platelet Count 141 10^3/uL (130-400); Red Blood Cell Count 3.92 10^6/uL (4.20-5.40); Red Cell Dist. Width 14.2 % (11.5-14.5); White Blood Cell Count 9.7 10^3/uL (4.8-10.8)
[2024-04-11 18:06] LABS: Blood Urea Nitrogen 32 mg/dl (7-17); Calcium 9.4 mg/dl (8.4-10.2); Carbon Dioxide 15 mmol/L (22-30); Chloride 101 mmol/L (98-107); Glucose 95 mg/dl (70-99); Potassium 3.9 mmol/L (3.5-5.1); Sodium 135 mmol/L (135-145); eGFR 30.31
[2024-04-11 20:14] VITALS: BP 146/80
[2024-04-11] MEDS: LR 1000 IV (20:46)
[2024-04-11] MEDS: ATIVAN 2 MG IV (20:46)
[2024-04-11 21:33] LABS: Alcohol None Detected
[2024-04-11 22:20] VITALS: BP 163/85
[2024-04-11] MEDS: ATIVAN 1 MG IV (22:34)
[2024-04-11 23:15] LABS: Folate > 20.0 ng/ml (2.76-20); Vitamin B12 887 pg/ml (239-931)
--- NOTE | 2024-04-11 23:31 | HPS.HSE ---
Family Physician
-
Family Physician: Christopher Max
Chief Complaint
-
change in mental status
History of Present Illness
Patient is a 68-year-old female with past medical history significant for COPD, asthma, hypertension, HFpEF, bipolar, depression, DM, and alcohol dependency who presented to [place] ED for evaluation of acute change in mental status. Patient with
known alcohol dependency and DT with withdraw. Patients house reportedly in shambles and alcohol bottles everywhere. Although last drink reported as of the . Patient denies any fever, chills, cough, shortness of breath, chest pain, nausea,
vomiting, constipation, diarrhea or urinary symptoms.
Medical History
Past Medical History
Past Medical History: Reports Other
Additional Past Medical History:
COPD
asthma
HFpEF
hypertension
bipolar
depression
DM
alcohol dependency
Hx alcohol withdraw with DT
Past Surgical History: Reports Other
Additional Past Surgical History:
breast implants
tubal ligation
Social History
Unable to obtain full social history at this time due to: Patient Non-verbal (acute mental status change )
Family History
Family History: Unable to Obtain
Allergies / Home Medications
Allergies reflects when Allergies were last updated in [facility].
Home Medications with original date entered in [facility]
Allergy/Medication List:
Allergies
Allergy/AdvReac Type Severity Reaction Status Date / Time
codeine Allergy causes Verified 04/11/24 17:28
nausea
oxycodone [From Percocet] Allergy Nausea / Verified 04/11/24 17:28
Vomiting
Home Medications
B-complex with vitamin C 1 tab PO DAILY Supplement ##0 09/14/14
albuterol sulfate 90 mcg/actuation aerosol inhaler 2 puff inhalation R Q4HPRN PRN shortness of breath #1 puff 09/14/14
citalopram 40 mg tablet 40 mg PO HS Depression ##0 09/14/14
glucosamine sulf dipot chlr,msm,chond 550 mg-C 30 mg-adriana 1 mg capsule (Glucosamine Chondroitin) 1 cap PO DAILY Supplement ##0 09/14/14
magnesium oxide 400 mg PO BID Electrolyte Repletion ##0 09/14/14
doemlizg-nov-trgpj ac 400 mcg-calcium carb 500 mg-vit K1 20 mcg tablet (Women's 50 Plus Daily Formula) 1 ea PO DAILY Supplement 09/14/14
omeprazole 40 mg capsule,delayed release 40 mg PO DAILY Gastrointestinal Issue 09/14/14
budesonide-formoterol HFA 160 mcg-4.5 mcg/actuation aerosol inhaler (Symbicort) 2 puff inhalation R BID Lung/Breathing Issues 08/05/23
ondansetron HCl 4 mg tablet 4 mg PO DAILY PRN nausea/vomiting 08/05/23
apixaban 5 mg tablet (Eliquis) 5 mg PO BID Blood clot prevention/tx #60 tabs 08/06/23
folic acid 1 mg tablet 1 mg PO DAILY Supplement #0 tabs 08/08/23
furosemide 40 mg tablet 40 mg PO DAILY Fluid retention/Swelling #30 tabs 08/08/23
metoprolol succinate 50 mg tablet,extended release 24 hr (Toprol XL) 50 mg PO DAILY Arrhythmia #30 tabs 08/08/23
potassium chloride 20 mEq tablet,extended release 20 meq PO DAILY Electrolyte Repletion #30 tabs 08/08/23
thiamine HCl (vitamin B1) 100 mg tablet 100 mg PO BID Supplement #0 tabs 08/08/23
Review of Systems
-
Unable to obtain full review of systems at this time due to: Patient Non-verbal (acute mental status change )
Physical Exam
Vital Signs
Vital Signs
Temp Pulse Resp BP Pulse Ox
98.2 F 71 20 163/85 94
04/11/24 22:37 04/11/24 23:15 04/11/24 23:15 04/11/24 22:20 04/11/24 23:15
Physical Exam
General: Well Developed, Well Nourished and No Apparent Distress
HEENT: NormoCephalic, Moist mucous membranes, Atraumatic, [place] Conjunctivae, Nose Appears Normal and Ears Appear Normal
Respiratory: Clear
Cardiac: S1/S2 and Regular Rhythm; No Murmur, Rub or Gallop
Breast: Deferred by me
GI: Soft, Non Tender, Non Distended and Normal Bowel Sounds; No Organomegaly
Rectal: Deferred by Provider
Musculoskeletal: No Clubbing, No Cyanosis and No Edema
Skin: Warm and IV/Catheter Site; No Rash
Neuro: Slurred Speech
Psych: Confused
Laboratory Results
-
04/11/24 17:42
04/11/24 17:42
Data Reviewed
-
CT Scan: Report Reviewed by me (head: No evidence of acute intracranial abnormality.)
Lab Data: Labs Reviewed by me
Impression/Plan
-
IMPRESSION/PLAN:
unable to confirm current medications r/t altered mental status
#Acute TME
alcohol withdraw vs. drug ingestion vs. psych exacerbation
Head CT: No evidence of acute intracranial abnormality.
UDS: pending
UA: pending
- Admit to med/surg
- supportive care
- IVF
#CHARLES
BUN 32, Creat 1.2
- IVF
#COPD
#asthma
- monitor
- PRN albuterol
#HFpEF
- daily weights
#hypertension
- PRN hydralazine
#bipolar
#depression
- monitor mood
- consult psych
#DM
- AccuCheck AC & HS
- SSI
#alcohol dependency
Hx alcohol withdraw with DT
reports last drink 03/30/2024
- MSAS protocol
Code status: Full code
DVT Prophylaxis: heparin sq
--- NOTE | 2024-04-11 23:55 | W.PN.UPDATE ---
Update Note
Progress Note Update
This is an addendum to the H&P written by Catina Gibbons. Patient seen and examined independently with COTTON CLASSER AIDE.
68-year-old female past medical history of atrial fibrillation on Eliquis, CHF, hypertension, alcohol use disorder, bipolar disorder, asthma, presenting with confusion. Patient called around 7 AM voicemail that was garbled/pressured speech.
Patient with anxiety and stuttering. Patient appeared to be hallucinating but animals and people in her home. Her sister who is currently staying with her house is not complete disarray. They are empty alcohol bottles all over the house but
apparently she believes patient and patient herself states that no alcohol use since the .
CT head shows no acute abnormality.
Labs show CHARLES with creatinine 1.8.
Urinalysis pending.
Alcohol level negative.
Patient behaving as though she ingested drug versus overdose of potential psychiatric medications. Not quite behaving like alcohol withdrawal although likely given history.
Urinalysis pending. Check UDS. Check TSH. IV fluids. Alcohol withdrawal protocol. Thiamine and folate. Psychiatry consulted.
[2024-04-11] MEDS: FOLVITE 50.2 MG IV (23:59)
[2024-04-12] VITALS (14 sets, daily range): BP systolic 111–152; BP diastolic 68–101; PULSE 72; BMI 30.9; BMI 29.1
[2024-04-12 00:14] LABS: Urine Albumin Trace (Neg - Trace); Urine Bilirubin 1+ (Negative); Urine Character Clear (Clear); Urine Color Yellow; Urine Glucose Negative (Negative); Urine Ketone Trace (Negative); Urine Leukocyte 2+ (Negative); Urine Nitrite Positive (Negative); Urine Occult Blood Negative (Negative); Urine Urobilinogen Negative (Neg - 1+)
[2024-04-12] MEDS: THIAMINE INJECTION 255 MG IV ×4 (00:16→23:31)
[2024-04-12 00:29] LABS: Urine Hyaline Cast 0-2 /LPF (0-2); Urine Mucus Few; Urine Squamous Cell 0-2 /LPF (Few)
[2024-04-12 00:30] LABS: Urine Bacteria Many (Negative); Urine White Cell 26-30 /HPF (0-5)
[2024-04-12] MEDS: HEPARIN SC (01:05)
[2024-04-12] MEDS: NSS 1000 IV (01:25)
[2024-04-12 01:30] LABS: Amphetamines Negative (Negative); Barbiturates Negative (Negative); Benzodiazepines Positive (Negative); Buprenorphine Negative (Negative); Cocaine Negative (Negative); Marijuana Negative (Negative); Methadone Negative (Negative); Methamphetamines Negative (Negative); Opiates Negative (Negative); Phencyclidine Negative (Negative); Tricyclic Antidepressants Negative (Negative)
[2024-04-12 01:40] LABS: INR 1.32; PT 16.7 Sec (11.4-14.6)
[2024-04-12 01:41] LABS: APTT 29.9 Sec (23.4-35.0)
[2024-04-12 01:44] LABS: Fentanyl, Urine Negative (Negative)
[2024-04-12 01:56] LABS: Magnesium 0.9 mg/dl (1.6-2.3); Phosphorus 5.1 mg/dl (2.5-4.5)
[2024-04-12 02:14] LABS: GGTP 429 U/L (12-43)
[2024-04-12 02:48] LABS: B-Hydroxybutyrate 0.63 mmol/L (0.02-0.27)
[2024-04-12] MEDS: MAGNESIUM SULFATE 100 IV (02:57)
--- NOTE | 2024-04-12 03:00 | EDRN ---
Report received, introduced myself to patient, patient needing to urinate, patient placed on a bedpan and changed, new linen placed on bed and pulled up in bed, lights turned down, call gomes in reach, will continue to monitor.
[2024-04-12 06:49] LABS: Hematocrit 33.2 % (37.0-47.0); Hemoglobin 11.6 g/dL (12.0-16.0); Mean Corp Hgb Conc. 34.9 g/dL (33.0-37.0); Mean Corpuscular Hgb 34.3 pg (27.0-31.0); Mean Corpuscular Volume 98.2 fL (81.0-99.0); Mean Platelet Volume 11.6 fL (7.4-10.4); Platelet Count 111 10^3/uL (130-400); Red Blood Cell Count 3.38 10^6/uL (4.20-5.40); White Blood Cell Count 5.6 10^3/uL (4.8-10.8)
[2024-04-12 07:02] LABS: Blood Urea Nitrogen 32 mg/dl (7-17); Calcium 8.9 mg/dl (8.4-10.2); Carbon Dioxide 20 mmol/L (22-30); Chloride 106 mmol/L (98-107); Glucose 89 mg/dl (70-99); Magnesium 2.5 mg/dl (1.6-2.3); Potassium 3.5 mmol/L (3.5-5.1); Sodium 137 mmol/L (135-145); eGFR 54.73
--- NOTE | 2024-04-12 07:02 | EDRN ---
Report to TRAVIS Deleon
--- NOTE | 2024-04-12 07:09 | EDRN ---
the pt was received from the previous nurse Lupis RN, the pt was found yelling for help, when this RN entered the pts room the pt stated, 'Please help me i have to go to the bathroom please help', this RN talked the pt through deep breathing and
educated the pt on the pure wick, this RN placed the pure wick and the pt was able to go to the bathroom, the pt is on fall precautions and MSAS protocol, VS WNL, no c/o chest pain, no c/o SOB, the pt is currently on 2L NC Sp02 97%, IVF running at
100cc/hour, the pt is resting in stretcher in the lowest position, side rails up x2, call gomes within reach, HOB elevated, side rails up x2, call gomes within reach, this RN educated the pt on the use of the call gomes and the pt verbally stated that
she understood, will continue to monitor the pt closely
[2024-04-12] MEDS: HEPARIN 5000 UNITS SC ×3 (07:20→23:31)
[2024-04-12] MEDS: FOLVITE 1 MG PO (07:20)
--- NOTE | 2024-04-12 07:26 | EDRN ---
AM medication were administered, the pt was able to take tablet PO with water with no issues
--- NOTE | 2024-04-12 07:27 | EDRN ---
medication reconciliation not complete, this RN asked the pt if she had a list of her medication and she stated no, this RN will notify pharmacy
[2024-04-12] MEDS: ATIVAN 2 MG IV (08:36)
--- NOTE | 2024-04-12 08:47 | EDRN ---
this RN heard the pt screaming, 'Help me help me nurse nurse please help me do your job and help me!!', this RN entered the pts room and the pt was found ripping off her heart monitor, BP cuff and Sp02 monitor, the pt was found throwing her legs
over the side rails, the pt had visible tremors and the pt was diaphoretic, this RN talked the pt through deep breathing and this RN placed the pt back on the monitor and the pt was found to be tachycardic, this RN saw that there was Ativan IV
administered for the pt, the pts MSAS was 10 however the provider approved for Ativan 2mg to be administered to the pt, this RN administered IV Ativan and talked the pt through deep breathing again and the pt was able to slowly calm down, the pt is
resting in stretcher in the lowest position, side rails up x2, call gomes within reach, no s/s of distress, VS WNL, will continue to monitor the pt closely
--- NOTE | 2024-04-12 09:10 | EDRN ---
the pt pressed the call gomes and this RN entered the pts room, the pt stated that she wants something for her sciatica pain, this RN notified Dr. Bloom who stated that he will come to the pts bedside
--- NOTE | 2024-04-12 09:11 | EDRN ---
the pt is resting in stretcher in the lowest position, side rails up x2, call gomes within reach, HOB elevated, no s/s of distress, MSAS protocol maintained, the pt states that she feels much better and much more calm, VS Patria HENDERSON pharmacist
currently at the pts bedside speaking to the pt regarding her home medications, will continue to monitor the pt closely
--- NOTE | 2024-04-12 09:30 | EDRN ---
the pt pressed the call gomes and this RN entered the pts room, the pt stated to this RN, 'I asked for something for my sciatica and i have not gotten it where is it and why are you not checking on me', this RN notified the pt that this RN had
notified her previously that Dr. Bloom was going to be in the pts room to see the pt and discuss her sciatica pain per the provider, the pt was agreeable to this, will continue to monitor the pt closely
[2024-04-12] MEDS: NSS IV (10:39)
--- NOTE | 2024-04-12 10:41 | W.PN.HOSP.TC ---
Today's Communication/Plan
-
See plan
Assessment / Plan
Assessment / Plan
Impression:
Toxic metabolic encephalopathy.
Concern for impending DT.
Acute kidney injury.
High anion gap metabolic acidosis
Hypomagnesemia
Severe alcohol use disorder
Bacteriuria
Other conditions:
Paroxysmal atrial fibrillation
Chronic diastolic CHF
-Echo 08/06 LVEF 55-60%. Mild to moderate TR with pulmonary artery pressure 55 mmHg. At least moderate MR.
Asthma/COPD
Hypertension
Bipolar disorder.
Plan:
Toxic metabolic encephalopathy likely multifactorial with possibility of alcohol withdrawal and benzodiazepines, CHARLES and decreased renal clearance likely contributing
Mental status improved with hydration and close to baseline.
Exam with no focal neurologic findings
CT scan of the head with no acute abnormalities
Severe alcohol use disorder
Impending DT
Patient reports last alcohol drink on 04/01
? Wernicke's encephalopathy
Continue alcohol withdrawal protocol with lorazepam.
Continue IV thiamine
Check LFT/ammonia level
CHARLES
Increased anion gap metabolic acidosis/alcoholic acidosis.
Avoid NSAIDs.
Continue IV hydration follow BMP
Hypomagnesemia improved with repletion
Bipolar disorder
Continue citalopram.
Psychiatry consultation
Paroxysmal atrial fibrillation.
Status post cardioversion 08/06
Currently not on anticoagulation. Reportedly that was discontinued 3 months after diagnosis well patient remains in normal sinus rhythm
Continue telemetry monitoring
Continue metoprolol
Patient with history of decompensated CHF preserved EF in the past in the settings of A-fib. Volume status on presentation consistent with dehydration.
Asthma/COPD without exacerbation.
Continue Symbicort
PT assessment
Full code.
Anticipated Discharge: 24 - 48 hours
Subjective/Interval History
-
Date of Service: April 12, 2024
Objective Data
-
Labs:
Laboratory Results
04/12/24 04/12/24
01:22 06:16
WBC 5.6
Hgb 11.6 L
Hct 33.2 L
Plt Count 111 L D
PT 16.7 H
INR 1.32
APTT 29.9
Sodium Cancelled 137
Potassium Cancelled 3.5
Chloride Cancelled 106
Carbon Dioxide Cancelled 20 L
BUN Cancelled 32 H
Creatinine Cancelled 1.1 H
Glucose Cancelled 89
Calcium Cancelled 8.9
Total Bilirubin Pending
AST Pending
ALT Pending
Alkaline Phosphatase Pending
Vital Signs:
Vital Signs
Temp Pulse Resp BP Pulse Ox
98.6 F 63 16 116/83 97
04/12/24 07:06 04/12/24 10:04 04/12/24 10:04 04/12/24 10:04 04/12/24 10:04
Physical Exam
-
General: Well Developed and No Apparent Distress
HEENT: Normocephalic, Atraumatic and Moist Mucous Membranes
Respiratory: Clear to Auscultation
Cardiac: Regular Rhythm and S1/S2; Negative Murmur, Rub or Gallop
GI: Soft, Nontender, Nondistended and Normal Bowel Sounds; Negative Organomegaly
Rectal: Deferred by Provider
Musculoskeletal: No Clubbing, No Cyanosis and No Edema
Skin: Negative Rash
Neuro: Nonfocal/Grossly Intact
--- NOTE | 2024-04-12 10:45 | EDRN ---
ammonia level drawn and sent, the pts sister is currently at the pts bedside now, the pt stated that she was hungry now and asked for a menu and this RN provided a menu for the pt, the pt knows the number to call for lunch
--- NOTE | 2024-04-12 10:55 | CM ---
audience development manager reviewed patient's chart and met with patient and patient lives alone in a 2 story home with one step to enter, patient is independent with adl's, patient has a cane walker and stair glide in home, patient was on oxygen but is currently
not requiring oxygen.
audience development manager was consulted for substance abuse counseling and supports, high risk case manager reviewed alcohol use and patient denies that she is currently using alcohol and stopped drinking a few weeks ago, patient has declined offer to reach out to [facility]
for them to proved patient with support.
PCP: Dr. Max
Pharmacy [facility]
Plan; Home when stable, patient has declined [facility] referral.
[2024-04-12 11:03] LABS: Ammonia < 9 umol/L (9-30)
[2024-04-12 11:08] LABS: ALT (SGPT) 24 U/L (0-35); AST (SGOT) 67 U/L (14-36); Albumin 3.6 g/dl (3.5-5.0); Alkaline Phosphatase 69 U/L (38-126); Direct Bilirubin 0.4 mg/dl (0.0-0.4); Total Protein 6.1 g/dl (6.3-8.2)
--- NOTE | 2024-04-12 11:21 | EDRN ---
psychiatry currently at the pts bedside speaking with the pt and the pts sister
[2024-04-12] MEDS: PROTONIX 40 MG PO (12:22)
[2024-04-12] MEDS: TOPROL XL 50 MG PO (12:25)
--- NOTE | 2024-04-12 12:51 | EDRN ---
the pt is eating lunch, the pt denies needing anything at this time, VS WNL, no s/s of distress, will continue to monitor the pt closely
--- NOTE | 2024-04-12 14:22 | EDRN ---
this RN titrated the pts 02 from 2L to RA, Sp02 remains 96%, no c/o SOB, no c/o chest pain, will continue to monitor the pt closely
--- NOTE | 2024-04-12 14:27 | EDRN ---
this RN called the receiving nurse and gave verbal report, paper report was also tubed up to the receiving unit
--- NOTE | 2024-04-12 14:31 | CS.PSYCHR ---
Consult Summary - Psychiatry
-
Pt is a 68 yo female with history of alcohol use, brought to ED after pt called her sister at 7am in a confused state. Sister present reports patient has been having some visual hallucinations. Last alcohol was 03/30/24, pt states she stopped 'cold
turkey.' Pt has noticeable tremor, no agitation, no signs of psychosis. Pt denies feeling depressed or anxious. Head CT showed no acute abnormality, mild-mod frontal atrophy. Pt was given Ativan overnight, 2 mg this am. Alcohol level not
detected on admission.
Psych Hx: unspecified depression, no history of inpatient treatment; prescribed Celexa 40 mg QD by PCP, prescribed Ativan in 2023, last filled 1 mg #30 on 02/16/24
Alcohol use with noted hx of DT's
SH: unremarkable
MSE: alert, oriented, calm, pleasant, cooperative. Affect stable, mood good, able to joke. Speech/thought coherent/clear. No overt hallucinations. Insight appears fair
Imp: Alcohol Use, severe
Unspecified depression, stable on existing Celexa
Rec: alcohol withdrawal precautions, agree with MSAS protocol
continue existing Celexa. Outpatient med mgt when medically stable. Encourage to pt accept alcohol rehab/treatment
Psychiatry will sign off. Please reconsult for any new concerns
--- NOTE | 2024-04-12 14:32 | EDRN ---
physical therapy currently at the pts bedside
[2024-04-12] MEDS: MAG-TAB SR 84 MG PO (20:49)
[2024-04-12] MEDS: CELEXA 40 MG PO (21:07)
[2024-04-12 22:26] LABS: Glucose - Point of Care 91 mg/dl (70-99)
[2024-04-13 03:02] VITALS: BP 143/74
[2024-04-13] MEDS: NSS 1000 IV (03:16)
[2024-04-13] MEDS: NSS IV (03:16)
[2024-04-13 05:13] VITALS: BMI 27.9
[2024-04-13 07:41] LABS: ALT (SGPT) 20 U/L (0-35); AST (SGOT) 48 U/L (14-36); Albumin 3.1 g/dl (3.5-5.0); Alkaline Phosphatase 96 U/L (38-126); Blood Urea Nitrogen 16 mg/dl (7-17); Calcium 8.8 mg/dl (8.4-10.2); Carbon Dioxide 23 mmol/L (22-30); Chloride 110 mmol/L (98-107); Estimated Creatinine Clearance 96 ml/min; Glucose 113 mg/dl (70-99); Magnesium 1.2 mg/dl (1.6-2.3); Potassium 3.2 mmol/L (3.5-5.1); Sodium 141 mmol/L (135-145); Total Bilirubin 0.7 mg/dl (0.2-1.3); Total Protein 5.6 g/dl (6.3-8.2); eGFR > 60.00
[2024-04-13 07:43] VITALS: BP 165/86
[2024-04-13 08:06] LABS: % Basophils 0.7 % (0-2); % Eosinophils 0.9 % (0-6); % Immature Granulocytes 0.2 % (0-0.5); % Lymphocytes 24.3 % (20.5-51.1); % Monocytes 18.7 % (1.7-9.3); % Neutrophils 55.2 % (42.2-75.2); Absolute Lymphocytes 1.1 10^3/uL (1.2-3.4); Absolute Monocytes 0.8 10^3/uL (0.1-0.6); Absolute Neutrophils 2.5 10^3/uL (1.4-6.5); Hematocrit 33.5 % (37.0-47.0); Hemoglobin 11.1 g/dL (12.0-16.0); Mean Corp Hgb Conc. 33.1 g/dL (33.0-37.0); Mean Corpuscular Hgb 33.3 pg (27.0-31.0); Mean Corpuscular Volume 100.6 fL (81.0-99.0); Nucleated Red Blood Cells % 0 %; Red Blood Cell Count 3.33 10^6/uL (4.20-5.40); Red Cell Dist. Width 14.2 % (11.5-14.5); White Blood Cell Count 4.5 10^3/uL (4.8-10.8)
[2024-04-13 08:07] LABS: Platelet Count 71 10^3/uL (130-400)
[2024-04-13] MEDS: PROTONIX 40 MG PO (09:05)
[2024-04-13] MEDS: TOPROL XL 50 MG PO (09:05)
[2024-04-13] MEDS: FOLVITE 1 MG PO (09:05)
[2024-04-13] MEDS: MAG-TAB SR 84 MG PO ×2 (09:07→20:47)
[2024-04-13] MEDS: THIAMINE INJECTION 255 MG IV ×2 (09:09→16:16)
[2024-04-13] MEDS: HEPARIN 5000 UNITS SC ×2 (09:10→16:15)
--- NOTE | 2024-04-13 11:10 | PTCARENOTE ---
pt refused to oob. pt unsteady on her feet at this time. . plan of care ongoing. call gomes within reach. safety precaution maintained.
[2024-04-13 11:21] VITALS: BP 165/89
[2024-04-13 15:00] VITALS: BP 179/80
--- NOTE | 2024-04-13 15:42 | PTCARENOTE ---
Dr. Bloom made aware of pt elevated sbp in 160-179. Pt Denies pain at this time. no s/s of distress noted. No new orders at this time. plan of care ongoing.
--- NOTE | 2024-04-13 16:03 | PTCARENOTE ---
pt oob in chair with assist of 1. Pt has her own walker with wheels. No c/o at this time. sister at bedside.
--- NOTE | 2024-04-13 16:37 | W.PN.HOSP.TC ---
Today's Communication/Plan
-
Continue alcohol withdrawal protocol.
Physical therapy assessment
Assessment / Plan
Assessment / Plan
Impression:
Toxic metabolic encephalopathy.
Concern for impending DT.
Acute kidney injury.
High anion gap metabolic acidosis
Hypomagnesemia
Severe alcohol use disorder
Bacteriuria
Accelerated hypertension
Other conditions:
Paroxysmal atrial fibrillation
Chronic diastolic CHF
-Echo 08/06 LVEF 55-60%. Mild to moderate TR with pulmonary artery pressure 55 mmHg. At least moderate MR.
Asthma/COPD
Hypertension
Bipolar disorder.
Plan:
Toxic metabolic encephalopathy likely multifactorial with possibility of alcohol withdrawal and benzodiazepines, CHARLES and decreased renal clearance likely contributing
Mental status improved with hydration and close to baseline.
Exam with no focal neurologic findings
CT scan of the head with no acute abnormalities
Severe alcohol use disorder
Impending DT
Patient reports last alcohol drink on 04/01
? Wernicke's encephalopathy
Continue alcohol withdrawal protocol with lorazepam.
Continue IV thiamine
Check LFT/ammonia level
CHARLES
Increased anion gap metabolic acidosis/alcoholic acidosis.
Avoid NSAIDs.
Improved with hydration
Hypomagnesemia improved with repletion
Hypokalemia, replete
Bipolar disorder
Continue citalopram.
Psychiatry consultation
Paroxysmal atrial fibrillation.
Status post cardioversion 08/06
Currently not on anticoagulation. Reportedly that was discontinued 3 months after diagnosis well patient remains in normal sinus rhythm
Continue telemetry monitoring
Continue metoprolol
Patient with history of decompensated CHF preserved EF in the past in the settings of A-fib. Volume status on presentation consistent with dehydration.
Accelerated hypertension.
Continue metoprolol.
May need second agent. Monitor BP trend
Asthma/COPD without exacerbation.
Continue Symbicort
PT assessment
Full code.
Anticipated Discharge: 24 - 48 hours
Subjective/Interval History
-
Date of Service: April 13, 2024
Objective Data
-
Labs:
Laboratory Results
04/13/24
06:53
WBC 4.5 L
Hgb 11.1 L
Hct 33.5 L
Plt Count 71 L D
Sodium 141
Potassium 3.2 L
Chloride 110 H
Carbon Dioxide 23
BUN 16
Creatinine 0.5 L
Glucose 113 H
Calcium 8.8
Total Bilirubin 0.7
AST 48 H
ALT 20
Alkaline Phosphatase 96
Vital Signs:
Vital Signs
Temp Pulse Resp BP Pulse Ox
99.5 F 73 16 179/80 96
04/13/24 15:00 04/13/24 15:00 04/13/24 15:00 04/13/24 15:00 04/13/24 15:00
I&O
04/12/24 04/13/24 04/14/24
06:59 06:59 06:59
Intake Total 2164 2165
Balance 5 / 216
Physical Exam
-
General: Well Developed and No Apparent Distress
HEENT: Normocephalic, Atraumatic and Moist Mucous Membranes
Respiratory: Clear to Auscultation
Cardiac: Regular Rhythm and S1/S2; Negative Murmur, Rub or Gallop
GI: Soft, Nontender, Nondistended and Normal Bowel Sounds; Negative Organomegaly
Rectal: Deferred by Provider
Musculoskeletal: No Clubbing, No Cyanosis and No Edema
Skin: Negative Rash
Neuro: Nonfocal/Grossly Intact
[2024-04-13] MEDS: KCL 40 MEQ PO (16:51)
[2024-04-13 19:41] VITALS: BP 156/88
[2024-04-13] MEDS: CELEXA 40 MG PO (22:35)
[2024-04-13 23:43] VITALS: BP 151/89
[2024-04-14] MEDS: HEPARIN 5000 UNITS SC ×2 (00:10→08:43)
[2024-04-14] MEDS: THIAMINE INJECTION 255 MG IV ×2 (00:12→08:44)
[2024-04-14] MEDS: APRESOLINE 5 MG IV (03:36)
[2024-04-14 03:37] VITALS: BP 167/100; BP 192/108
[2024-04-14 06:00] VITALS: BMI 27.3
[2024-04-14 06:15] VITALS: BP 160/84
[2024-04-14 06:20] LABS: Magnesium 0.9 mg/dl (1.6-2.3)
[2024-04-14] MEDS: MAGNESIUM SULFATE 50 IV (07:30)
--- NOTE | 2024-04-14 07:40 | PTCARENOTE ---
Critical mag 0.9. Notified Tawny CALZADA. Magnesium sulfate 2g/50ml IV ordered and administered. Pt with no complaints at this time, resting comfortably in bed.
[2024-04-14 07:49] VITALS: BP 162/83
[2024-04-14] MEDS: FOLVITE 1 MG PO (08:43)
[2024-04-14] MEDS: MAG-TAB SR 84 MG PO (08:43)
[2024-04-14] MEDS: TOPROL XL 50 MG PO (08:43)
[2024-04-14] MEDS: PROTONIX 40 MG PO (08:43)
[2024-04-14 11:24] VITALS: BP 149/76
[2024-04-14 11:45] VITALS: BP 153/78; PULSE 74; O2SAT 98
--- NOTE | 2024-04-14 12:37 | CM ---
Patient seen at bedside.
IMM explained & signed. In chart
Offered [facility] again as previous CM spoke with patient. Patient declines [facility] resources.
PT rec SNF vs. HH - patient ambulated 500 ft w/rollator
Discussed VN options - prefers [facility] - liaison notified.
PLAN: Home with [facility], RN, PT,OT, DRAFTING TEACHER
--- NOTE | 2024-04-14 13:15 | VNURNOTE ---
Chart reviewed. July 2023, pt was anon-admit with VN services after DC d/t refusing VN when called to schedule first visit. Home Health Liaison met with patient at bedside to discuss [facility] nurse/therapy, visits, schedule and homebound status.
Discussed non-admit in July. Patient stated once she got home, she didn't feel she needed VN. Reviewed homebound status and services we can provide (short term, intermittent, skilled). Patient is agreeable and understands that visits at home will
be 2-3 x per week to assess and teach medical management. Patient is declining AUTOMATED PROCESS OPERATOR consult.
[facility] brochure provided with contact information. Patient is aware that [facility] will contact them for start of care in 1-2 days after discharge from .
[facility] referral completed in [facility].
[2024-04-14] MEDS: KCL 40 MEQ PO (13:25)
--- NOTE | 2024-04-14 14:07 | W.DS.TRANS ---
DC Summary - Surg Tech
-
Discharge Instructions:
Discharge Diagnosis/Procedures Impression:
Toxic metabolic encephalopathy.
Concern for impending DT.
Acute kidney injury.
High anion gap metabolic acidosis
Hypomagnesemia
Severe alcohol use disorder
Bacteriuria
Accelerated hypertension
Other conditions:
Paroxysmal atrial fibrillation
Chronic diastolic CHF
-Echo 08/06 LVEF 55-60%. Mild to moderate TR
with pulmonary artery pressure 55 mmHg. At
least moderate MR.
Asthma/COPD
Hypertension
Bipolar disorder.
Diet Regular
Instructions:
Stand-Alone Forms:
Changes to Home Medications: No
Discharge Medications:
DC Medications w/original date entered in [employer]
B-complex with vitamin C 1 tab PO DAILY Supplement ##0 09/14/14
albuterol sulfate 90 mcg/actuation aerosol inhaler 2 puff inhalation R Q4HPRN PRN shortness of breath #1 puff 09/14/14
citalopram 40 mg tablet 40 mg PO HS Depression ##0 09/14/14
glucosamine sulf dipot chlr,msm,chond 550 mg-C 30 mg-adriana 1 mg capsule (Glucosamine Chondroitin) 1 cap PO DAILY Supplement ##0 09/14/14
magnesium oxide 400 mg PO BID Electrolyte Repletion ##0 09/14/14
unersdmg-jto-vpqaz ac 400 mcg-calcium carb 500 mg-vit K1 20 mcg tablet (Women's 50 Plus Daily Formula) 1 ea PO DAILY Supplement 09/14/14
omeprazole 40 mg capsule,delayed release 40 mg PO DAILY Gastrointestinal Issue 09/14/14
budesonide-formoterol HFA 160 mcg-4.5 mcg/actuation aerosol inhaler (Symbicort) 2 puff inhalation R BIDPRN PRN shortness of breath 08/05/23
ondansetron HCl 4 mg tablet 4 mg PO DAILY PRN nausea/vomiting 08/05/23
metoprolol succinate 50 mg tablet,extended release 24 hr (Toprol XL) 50 mg PO DAILY Arrhythmia #30 tabs 08/08/23
potassium chloride 20 mEq tablet,extended release 20 meq PO DAILY Electrolyte Repletion #30 tabs 08/08/23
lorazepam 1 mg tablet 1 mg PO HSPRN PRN insomnia 04/12/24
Home Medication Changes
Pending Results: No
[2024-04-14] MEDS: FLUAD (65 yr+) 2024-2025 FORMULA 0.5 ML IM (14:34)
[2024-04-14 14:55] VITALS: BP 147/71
== END 2024-04-14 16:12 | disposition home health service (06) | DRG 896 ==
LOC: 2 NORTH 23:57
PROVIDERS: Nurse Practitioner Family; Physician Assistant Medical; ADMITTING PHYSICIAN Hospitalist; ATTENDING PHYSICIAN Internal Medicine; EMERGENCY PHYSICIAN Student in an Organized Health Care Education/Training Program; FAMILY PHYSICIAN Internal Medicine; OTHER PHYSICIAN Psychiatry & Neurology Psychiatry
PROC: 3E02340 Introduction of Influenza Vaccine into Muscle, Percutaneous Approach (ICD-10-PCS; 2024-04-14)
DX: F10.231 Alcohol dependence with withdrawal delirium (principal); G92.8 Other toxic encephalopathy; I50.32 Chronic diastolic (congestive) heart failure; N17.9 Acute kidney failure, unspecified; E87.20 Acidosis, unspecified; J44.89 Other specified chronic obstructive pulmonary disease; F13.239 Sedative, hypnotic or anxiolytic dependence with withdrawal, unspecified; I11.0 Hypertensive heart disease with heart failure; I48.0 Paroxysmal atrial fibrillation; F31.9 Bipolar disorder, unspecified; E11.9 Type 2 diabetes mellitus without complications; E83.42 Hypomagnesemia; E87.6 Hypokalemia; R44.1 Visual hallucinations; K21.9 Gastro-esophageal reflux disease without esophagitis; Z88.5 Allergy status to narcotic agent; Z79.01 Long term (current) use of anticoagulants; Z79.899 Other long term (current) drug therapy; Z23 Encounter for immunization; Z87.891 Personal history of nicotine dependence
CPT/HCPCS: 70450; 80048; 80053; 80306; 80307; 81003; 81015; 82010; 82077; 82140; 82248; 82607; 82746; 82962; 82977; 83735; 84100; 84443; 85025; 85027; 85610; 85730; 87077; 87086; 87186; 90662; 93005; 96361; 96374; 96376; 97116; 97163; 97530; 99285; G0008

== ENCOUNTER → 2025-01-22 09:52 | Outpatient (REF) | payer MEDICARE, SELFPAY | LOC: PAVMRI 09:52 | PROVIDERS: ATTENDING PHYSICIAN Orthopaedic Surgery; FAMILY PHYSICIAN Internal Medicine | DX: M54.50 Low back pain, unspecified (principal) | CPT/HCPCS: 72148 ==